=== PATIENT | male | born 1980 | race Caucasian/White ===

== ENCOUNTER → 2022-08-07 12:26 | Outpatient (BNVA) | payer MEDICAID, SELFPAY | PROVIDERS: PCP Nurse Practitioner Family; Visit Provider Nurse Practitioner Family | DX: N20.0 Calculus of kidney (principal); N43.3 Hydrocele, unspecified | CPT/HCPCS: 99202 ==

== ENCOUNTER 2022-08-25 15:28 | Outpatient (REF) | payer MEDICAID, SELFPAY ==
--- NOTE | ~2022-08-25 | US_ITS ---
EXAMINATION: US RETROPERITONEAL LIMITED (RENAL ONLY) CLINICAL INFORMATION: Calculus of kidney. COMPARISON: CT abdomen and pelvis 03/31/2018. TECHNIQUE: Real-time imaging of the kidneys. FINDINGS: RIGHT KIDNEY: 10.1 x 5.5 x 5.5 cm (SAG x AP x TRV). The kidney is normal in size, contour, and echogenicity. Renal cortical thickness is normal. A mid kidney 4 x 2 x 4 mm echogenic focus present consistent with a nonobstructing calculus. Similar finding was seen on the 2018 CT scan although a tiny bit smaller (3:308). No focal parenchymal lesions or hydronephrosis. LEFT KIDNEY: 11.0 x 6.0 x 5.6 cm (SAG x AP x TRV). The kidney is normal in size, contour, and echogenicity. Renal cortical thickness is normal. No calculi or focal parenchymal lesions. No hydronephrosis. Incidental note made of an echogenic liver compatible with hepatic steatosis. US/US renal BI IMPRESSION: 1. Nonobstructing right renal calculus. 2. Hepatic steatosis.
--- NOTE | ~2022-08-25 | US_ITS ---
EXAMINATION: US SCROTUM CLINICAL INFORMATION: Hydrocele, unspecified. COMPARISON: Scrotal ultrasound 03/31/2018. TECHNIQUE: A sonogram of the scrotum was performed assessing simpson-scale appearance and color Doppler flow. Spectral Doppler analysis of the arterial and venous flow were performed in the testes bilaterally. FINDINGS: RIGHT: Right testicle measures 4.5 x 2.5 x 2.6 cm, volume 15.0 mL. No focal testicular parenchymal lesions are visualized. Spectral Doppler analysis of the arterial and venous flow is normal in the right testis. Right epididymal head is normal in size. No right hydrocele or varicocele is seen. Right epididymal Doppler flow is normal. LEFT: Left testicle measures 4.5 x 2.3 x 2.5 cm, volume 13.2 mL. No focal testicular parenchymal lesions are visualized. Spectral Doppler analysis of the arterial and venous flow is normal in the left testis. Left epididymal head is normal in size. There is a small 2 x 1 x 2 mm cyst in the head of the left epididymis. No left hydrocele or varicocele is seen. Left epididymal Doppler flow is normal. US/US scrotum IMPRESSION: Essentially negative exam. A tiny cyst is present in the head of the left epididymis.
== END 2022-08-25 15:29 | disposition home or self-care (01) ==
LOC: HO.US 15:28
PROVIDERS: PCP Nurse Practitioner Family; Visit Provider Emergency Medicine
DX: N20.0 Calculus of kidney (principal); N50.89 Other specified disorders of the male genital organs; N43.3 Hydrocele, unspecified
CPT/HCPCS: 76775; 76870

== ENCOUNTER → 2022-10-08 15:50 | Outpatient (BNVA) | payer MEDICAID, SELFPAY | PROVIDERS: PCP Nurse Practitioner Family; Visit Provider Nurse Practitioner Family | DX: N20.0 Calculus of kidney (principal); N43.3 Hydrocele, unspecified | CPT/HCPCS: 99212 ==

== ENCOUNTER 2023-01-01 15:52 | Outpatient (REF) | payer MEDICAID, SELFPAY ==
[2023-01-01 17:59] LABS: MANUAL DIFF FLAG NO
[2023-01-01 18:23] LABS: Basophils Percent Auto 0.5 % (0-2); Eosinophils Percent Auto 0.2 % (0-4); Estimated Average Glucose 111 mg/dL; Hematocrit 45.8 % (42.0-52.0); Hemoglobin 15.1 g/dl (14.0-18.0); Hemoglobin A1c % 5.5 %; Imm Gran Abs Auto 0.01 X10*3/uL (0.00-0.03); Imm Gran Pct Auto 0.2 % (0.0-0.4); Lymphocytes Absolute Auto 2.5 X10*3/uL (1.2-4.9); Lymphocytes Percent Auto 41.6 % (20-40); Mean Corpuscular Hemoglobin 29.5 pg (27.0-33.0); Mean Corpuscular Volume 89.5 fL (80.0-98.0); Mean Platelet Volume 10.9 fL (9.4-12.4); Monocytes Absolute Auto 0.6 X10*3/uL (0.1-1.2); Monocytes Percent Auto 9.2 % (2-11); Neutrophils Percent Auto 48.3 % (45-73); Platelet Count 257 X10*3/uL (160-400); Red Blood Count 5.12 X10*6/uL (4.60-5.80); Red Cell Distribution Width 13.1 % (11.0-16.0); White Blood Count 6.1 X10*3/uL (4.8-10.8)
[2023-01-01 18:34] LABS: Alanine Aminotransferase 68 U/L (0-40); Albumin Level 4.5 g/dL (3.5-5.0); Alkaline Phosphatase 79 U/L (39-117); Anion Gap 13 (12-20); Aspartate Amino Transferase 35 U/L (5-37); Bilirubin Total 0.6 mg/dL (0.0-1.0); Blood Urea Nitrogen 12 mg/dL (9-16); Calcium 9.7 mg/dL (8.4-10.2); Carbon Dioxide 25 mmol/L (22-29); Chloride 105 mmol/L (96-108); Cholesterol 162 mg/dL; Estimated Glomerular Filt Rate > 60; Glucose Random 94 mg/dL (60-115); HDL Cholesterol 37 mg/dL; LDL Cholesterol Calculated 81 mg/dl; Potassium 3.7 mmol/L (3.3-5.1); Sodium 139 mmol/L (135-145); Total Protein 7.7 g/dL (6.5-8.0); Triglycerides 224 mg/dL
[2023-01-01 18:50] LABS: TSH reflex Free T4 2.32 uIU/mL (0.32-4.0)
[2023-01-02 03:31] LABS: CT PCR NOT DETECTED (Not Detect.); NG PCR NOT DETECTED (Not Detect.)
[2023-01-02 05:06] LABS: Syphilis Screen Nonreactive (Nonreactive)
[2023-01-02 05:46] LABS: ~Hepatitis C Antibody Nonreactive (Nonreactive)
[2023-01-06 20:13] LABS: HIV RNA PCR Qn Copies NOT DETECTED copies/mL (NOT DETECTED); HIV RNA PCR Qn Log Copies NOT DETECTED (NOT DETECTED)
== END 2023-01-01 15:53 | disposition home or self-care (01) ==
LOC: HO.HHCL 15:52
PROVIDERS: Visit Provider Registered Nurse
DX: Z00.00 Encounter for general adult medical examination without abnormal findings (principal); Z11.4 Encounter for screening for human immunodeficiency virus [HIV]; Z11.3 Encounter for screening for infections with a predominantly sexual mode of transmission
CPT/HCPCS: 0353U; 80053; 80061; 83036; 84443; 85025; 86780; 86803; 87536

== ENCOUNTER 2023-01-29 13:59 | Outpatient (REF) | payer MEDICAID, SELFPAY ==
[2023-01-29 17:21] LABS: Alanine Aminotransferase 45 U/L (0-40); Albumin Level 4.4 g/dL (3.5-5.0); Alkaline Phosphatase 72 U/L (39-117); Aspartate Amino Transferase 23 U/L (5-37); Bilirubin Direct 0.2 mg/dL (0.0-0.5); Bilirubin Total 0.6 mg/dL (0.0-1.0); Total Protein 7.3 g/dL (6.5-8.0)
[2023-01-30 08:23] LABS: HBsAGNum1 0.41 S/CO (0.00-0.99); Hepatitis A Antibody IgM 0.19 Index (0-0.79); Hepatitis B Core Antibody Nonreactive (Nonreactive); Hepatitis B Surface Antigen Negative (Negative); ~HepC Num1 0.09 S/CO (0.00-0.79); ~Hepatitis A Antibody IgM Nonreactive (Nonreactive); ~Hepatitis B Surface Antibody REACTIVE (Nonreactive); ~Hepatitis C Antibody Nonreactive (Nonreactive)
== END 2023-01-29 14:00 | disposition home or self-care (01) ==
LOC: HO.HHCL 13:59
PROVIDERS: Visit Provider Registered Nurse
DX: R74.8 Abnormal levels of other serum enzymes (principal)
CPT/HCPCS: 36415; 80076; 86704; 86706; 86709; 86803; 87340

== ENCOUNTER 2023-05-04 15:57 | Outpatient (REF) | payer MEDICAID, SELFPAY ==
[2023-05-06 12:04] LABS: HIV RNA PCR Qn Copies NOT DETECTED copies/mL (NOT DETECTED); HIV RNA PCR Qn Log Copies NOT DETECTED (NOT DETECTED)
== END 2023-05-04 15:58 | disposition home or self-care (01) ==
LOC: HO.HHCL 15:57
PROVIDERS: Visit Provider Registered Nurse
DX: Z79.899 Other long term (current) drug therapy (principal)
CPT/HCPCS: 36415; 87536

== ENCOUNTER 2023-05-11 14:23 | Outpatient (REF) | payer MEDICAID, SELFPAY ==
[2023-05-11 16:21] LABS: Alanine Aminotransferase 49 U/L (0-40); Aspartate Amino Transferase 24 U/L (5-37)
== END 2023-05-11 14:24 | disposition home or self-care (01) ==
LOC: HO.HHCL 14:23
PROVIDERS: Visit Provider Advanced Practice Midwife
DX: R74.8 Abnormal levels of other serum enzymes (principal)
CPT/HCPCS: 36415; 84450; 84460

== ENCOUNTER 2023-05-21 15:39 | Outpatient (REF) | payer MEDICAID, SELFPAY ==
[2023-05-23 16:33] LABS: HIV RNA PCR Qn Copies NOT DETECTED copies/mL (NOT DETECTED); HIV RNA PCR Qn Log Copies NOT DETECTED (NOT DETECTED)
== END 2023-05-21 15:40 | disposition home or self-care (01) ==
LOC: HO.HHCL 15:39
PROVIDERS: Visit Provider Registered Nurse
DX: Z79.899 Other long term (current) drug therapy (principal)
CPT/HCPCS: 36415; 87536

== ENCOUNTER 2023-06-18 15:22 | Outpatient (REF) | payer MEDICAID, SELFPAY ==
[2023-06-23 15:17] LABS: HIV RNA PCR Qn Copies NOT DETECTED copies/mL (NOT DETECTED); HIV RNA PCR Qn Log Copies NOT DETECTED (NOT DETECTED)
== END 2023-06-18 15:23 | disposition home or self-care (01) ==
LOC: HO.HHCL 15:22
PROVIDERS: Visit Provider Registered Nurse
DX: Z79.899 Other long term (current) drug therapy (principal)
CPT/HCPCS: 36415; 87536

== ENCOUNTER 2023-06-29 14:26 | Outpatient (REF) | payer MEDICAID, SELFPAY ==
[2023-07-04 15:24] LABS: Testosterone, Total 10 ng/dL (250-1100)
[2023-07-06 23:27] LABS: Estradiol Ultra Sensitive 125 pg/mL (< OR = 29)
== END 2023-06-29 14:27 | disposition home or self-care (01) ==
LOC: HO.HHCL 14:26
PROVIDERS: Visit Provider Advanced Practice Midwife
DX: F64.9 Gender identity disorder, unspecified (principal)
CPT/HCPCS: 36415; 82670; 84403

== ENCOUNTER 2023-07-09 16:37 | Outpatient (REF) | payer MEDICAID, SELFPAY ==
[2023-07-09 18:16] LABS: CT PCR NOT DETECTED (Not Detect.); NG PCR NOT DETECTED (Not Detect.)
== END 2023-07-09 16:38 | disposition home or self-care (01) ==
LOC: HO.HHCLNP 16:37
PROVIDERS: Visit Provider Advanced Practice Midwife
DX: R30.0 Dysuria (principal)
CPT/HCPCS: 0353U

== ENCOUNTER 2023-07-15 13:55 | Outpatient (REF) | payer MEDICAID, SELFPAY ==
--- NOTE | ~2023-07-15 | US_ITS ---
EXAMINATION: US COMPLETE ABDOMEN WITH LIVER ELASTOGRAPHY CLINICAL INFORMATION: Elevated liver function tests. COMPARISON: CT abdomen and pelvis dated 03/31/2018. TECHNIQUE: Real-time imaging of the abdominal viscera. Noninvasive ultrasound liver fibrosis assessment is performed using Rik ElastPQ point quantification shear wave elastography (2D-SWE) with a C5-2 MHz transducer. Multiple elastography samples are obtained. FINDINGS: PANCREAS: Limited. The visualized pancreatic head and proximal body are normal in appearance. The remainder of the pancreas is obscured from visualization by the overlying bowel gas. ABDOMINAL AORTA: The proximal, middle, and distal aortic segments are normal in caliber. INFERIOR VENA CAVA: Visualized portions are normal. LIVER: Normal. The liver demonstrates normal size, contour and echogenicity. No focal lesion or intrahepatic biliary duct dilatation. The right lobe measures 15.4 cm in length. The left lobe measures 9.7 cm in length. Portal flow is towards the liver (hepatopetal). Shear wave liver elastography median stiffness is 1.50 m/s (reference: normal median stiffness is 1.3 m/s or less). IQR/median stiffness to assess sampling precision is 0.08 (reference: good quality data set is IQR/median stiffness of 0.15 or less). GALLBLADDER: Normal. The gallbladder is physiologically distended without evidence of stones, sludge, polyps, wall thickening or pericholecystic fluid. COMMON BILE DUCT: Normal in caliber measuring 0.4 cm in diameter. RIGHT KIDNEY: At the interpolar aspect, an 8 mm cluster of calculi is seen.. No hydronephrosis. No renal calculi or focal parenchymal lesions. The kidney measures 11.2 cm in maximum dimension. LEFT KIDNEY: At the interpolar aspect, a 2.0 x 1.8 x 1.6 cm multiseptated cyst is newly seen, without mural nodularity or associated color Doppler flow demonstrated. In retrospect, this At the lower pole, a 9 mm cluster nonobstructing calculi is seen. No hydronephrosis. No renal calculi or focal parenchymal lesions. The kidney measures 10.2 cm in maximum dimension. SPLEEN: Normal. The spleen measures 9.1 cm in maximum dimension. FREE FLUID: None. US/US abdomen comp w elastography IMPRESSION: 1. There is generalized increase in hepatic echotexture, consistent with fatty infiltration or hepatocellular disease. Please correlate clinically. No focal hepatic mass or intrahepatic biliary dilatation is seen. 2. Liver elastography: In the absence of other known clinical signs, measurements rule out compensated advanced chronic liver disease. If there are known clinical signs, further testing may be needed for confirmation. 3. There are nonobstructing bilateral renal calculi. 4. A multiseptated complex left renal cyst is seen. If relevant to patient management, this can be further evaluated with CT or MRI (contrast-enhanced, renal mass protocol). REFERENCE: Society of Radiologists in Ultrasound Liver Stiffness Thresholds (2020): LIVER STIFFNESS THRESHOLDS: *Liver Stiffness equal or less than 1.3 m/s: High probability of being normal. *Liver Stiffness less than 1.7 m/s: In the absence of other known clinical signs, rules out compensated advanced chronic liver disease. *Liver Stiffness 1.7-2.1 m/s: Suggestive of compensated advanced chronic liver disease but need further test for confirmation. *Liver Stiffness over 2.1 m/s: Rules in compensated advanced chronic liver disease. *Liver Stiffness over 2.4 m/s: Suggestive of clinically significant portal hypertension. QUALITY OF DATA SET: *IQR/Median value equal or less than 0.15 implies a quality data set. *IQR/Median value over 0.15 implies a poor quality data set. SIGNIFICANT CHANGE FROM PRIOR EXAM: Significant change if liver stiffness measurement is 10% or greater from prior exam. OTHER CONSIDERATIONS: The stage of liver fibrosis may be overestimated in the setting of acute hepatitis, liver inflammation, elevated liver function tests, hepatic vascular congestion, obstructive cholestasis, non-fasting state, and infiltrative diseases such as amyloidosis and lymphoma. In some patients with NAFLD, the liver stiffness thresholds for compensated advanced chronic liver disease may be lower. In causes other than viral hepatitis and NAFLD, liver stiffness thresholds are not well established.
== END 2023-07-15 13:56 | disposition home or self-care (01) ==
LOC: HO.US 13:55
PROVIDERS: PCP Registered Nurse; Visit Provider Registered Nurse
DX: R74.8 Abnormal levels of other serum enzymes (principal)
CPT/HCPCS: 76700; 76981

== ENCOUNTER 2024-01-06 15:36 | Outpatient (REF) | payer OTHER, SELFPAY ==
[2024-01-06 18:19] LABS: Alanine Aminotransferase 22 U/L (0-40); Aspartate Amino Transferase 15 U/L (5-37); Blood Urea Nitrogen 14 mg/dL (9-16); Estimated Glomerular Filt Rate > 60; Potassium 3.8 mmol/L (3.3-5.1)
[2024-01-06 18:35] LABS: Vitamin D 25-OH Total 12.9 ng/mL (>30)
[2024-01-06 18:48] LABS: Folate 10.8 ng/mL (> or = 4.0); Vitamin B12 444 pg/mL (200-900)
[2024-01-07 07:51] LABS: Syphilis Screen Nonreactive (Nonreactive)
[2024-01-07 07:57] LABS: ~HepC Num1 0.13 S/CO (0.00-0.79); ~Hepatitis C Antibody Nonreactive (Nonreactive)
[2024-01-07 11:24] LABS: EBV-VCA IgG Ab >750.00 U/mL; EBV-VCA IgM Ab <36.00 U/mL
[2024-01-07 13:58] LABS: HIV RNA PCR Qn Copies NOT DETECTED copies/mL (NOT DETECTED); HIV RNA PCR Qn Log Copies NOT DETECTED (NOT DETECTED)
[2024-01-13 00:13] LABS: Estradiol Ultra Sensitive 217 pg/mL (< OR = 29)
== END 2024-01-06 15:37 | disposition home or self-care (01) ==
LOC: HO.HHCL 15:36
PROVIDERS: Referring Provider Registered Nurse; Visit Provider Advanced Practice Midwife
DX: R53.83 Other fatigue (principal); F64.9 Gender identity disorder, unspecified; Z79.899 Other long term (current) drug therapy
CPT/HCPCS: 36415; 82306; 82565; 82607; 82670; 82746; 84132; 84450; 84460; 84520; 86664; 86665; 86780; 86803; 87536

== ENCOUNTER 2024-02-04 15:00 | Outpatient (REF) | payer OTHER, SELFPAY ==
--- NOTE | ~2024-02-04 | XR_ITS ---
EXAMINATION: XR KNEE, RIGHT XR KNEE, LEFT CLINICAL INFORMATION: Chronic intermittent atraumatic knee pain. COMPARISON: None available. TECHNIQUE: Three views of each knee. FINDINGS: RIGHT KNEE: Bones and soft tissues are normal. No fracture or joint effusion. Alignment is anatomic. Joint spaces are well maintained. No abnormal soft tissue calcification. LEFT KNEE: Bones and soft tissues are normal. No fracture or joint effusion. Alignment is anatomic. Joint spaces are well maintained. No abnormal soft tissue calcification. XR/XR knee LT 3V IMPRESSION: Normal knee radiographs. Electronically signed by: Hola Granados MD 02/22/2024 11:10 PM EDT
--- NOTE | ~2024-02-04 | XR_ITS ---
EXAMINATION: XR KNEE, RIGHT XR KNEE, LEFT CLINICAL INFORMATION: Chronic intermittent atraumatic knee pain. COMPARISON: None available. TECHNIQUE: Three views of each knee. FINDINGS: RIGHT KNEE: Bones and soft tissues are normal. No fracture or joint effusion. Alignment is anatomic. Joint spaces are well maintained. No abnormal soft tissue calcification. LEFT KNEE: Bones and soft tissues are normal. No fracture or joint effusion. Alignment is anatomic. Joint spaces are well maintained. No abnormal soft tissue calcification. XR/XR knee RT 3V IMPRESSION: Normal knee radiographs. Electronically signed by: Hola Granados MD 02/22/2024 11:10 PM EDT
--- NOTE | ~2024-02-04 | CT_ITS ---
EXAMINATION: CT ABDOMEN AND PELVIS WITHOUT CONTRAST CLINICAL INFORMATION: History of urinary calculi. COMPARISON: Abdominal ultrasound dated 07/15/2023; CT abdomen and pelvis dated 03/31/2018. TECHNIQUE: Multidetector volumetric imaging was performed from the superior aspect of the liver through the pubic symphysis. Sagittal and coronal reformatted images were obtained on the technologist's workstation. This CT examination was performed using dose optimization techniques as appropriate, variously including the following: *Automated exposure control *Adjustment of mA and/or kV according to patient size (this includes techniques or standardized protocols for targeted exams where dose is matched to indication/reason for exam; i.e. extremities or head) *Use of iterative reconstruction technique DLP: 561 mGy-cm FINDINGS: LUNG BASES: The visualized lung bases are unremarkable. There is marked bilateral gynecomastia. LIVER, GALLBLADDER, AND BILIARY TREE: The liver is normal in size, shape, and attenuation. No focal hepatic lesion or biliary ductal dilatation is present. The gallbladder is unremarkable with no evidence of radiopaque gallstones, gallbladder wall thickening, or obvious pericholecystic inflammatory changes. PANCREAS: Unremarkable. SPLEEN: Unremarkable. ADRENAL GLANDS: Unremarkable. KIDNEYS AND URETERS: The kidneys are normal in size, shape, and attenuation. Within the mid right kidney (4:267), a 3 mm nonobstructing calculus is seen. Within the mid left kidney (4:296), a 1.5 cm cyst is again seen, with precontrast Hounsfield value of 1.1 units. No hydronephrosis, hydroureter, or calculi seen. No perinephric stranding. BLADDER: Unremarkable. GASTROINTESTINAL TRACT: There is minimal diverticulosis, without acute diverticulitis. No bowel obstruction, free intraperitoneal air or abscess is seen. There is no focal bowel wall thickening. The vermiform appendix appears normal. ABDOMINAL WALL: No significant hernia is appreciated. LYMPH NODES: There are shotty, nonpathologically enlarged para-aortic and bilateral iliac chain lymph nodes. No sizable abdominopelvic lymphadenopathy is seen. VASCULAR: Unremarkable. PELVIC VISCERA: The prostate and seminal vesicles are unremarkable. There are coarse central prostate calcifications. OSSEOUS STRUCTURES: At L5-S1, there is marked degenerative disc disease, with vacuum disc phenomenon. No acute or aggressive osseous finding is noted. CT/CT abdomen pelvis wo IV con IMPRESSION: 1. A 3 mm nonobstructing right renal calculus is seen. No further urinary calculus is seen, and there is no obstructive uropathy. 2. Within the mid left kidney, a 1.5 cm cyst is seen, incompletely evaluated without the benefit of intravenous contrast. This is unchanged in size from the abdominal ultrasound dated 07/15/2023. 3. There is minimal diverticulosis, without acute diverticulitis. 4. At L5-S1, there is marked degenerative disc disease. 5. There is marked bilateral gynecomastia. Fleischner guidelines were followed. Electronically signed by: Calderon Richey MD 03/07/2024 10:11 PM EDT
--- NOTE | ~2024-02-04 | XR_ITS ---
EXAMINATION: XR LUMBOSACRAL SPINE CLINICAL INFORMATION: Chronic intermittent low back pain. COMPARISON: CT abdomen and pelvis from the same day. TECHNIQUE: AP and lateral views of the lumbar spine and lateral view of the lumbosacral junction. FINDINGS: There is transitional anatomy in the thoracolumbar and lumbosacral spine with small riblets at L1. Reftllwt-hy-xmtrwh degenerative disc disease at L5-S1 with loss of intervertebral disc height and endplate osteophytes with endplate irregularity. Mild facet arthropathy at L4-L5 and L5-S1. Mild degenerative disc disease at L4-L5. Vertebral body heights are normal. No fractures. Mild degenerative disc disease at T11-T12. Subtle findings of sacroiliitis in the SI joints, better seen on the CT. XR/XR lumbar spine 2-3V IMPRESSION: 1. Bmmcqemy-rx-ohiohj degenerative disc disease at L5-S1. Mild degenerative disc disease at L4-L5 and T11-T12. 2. Mild facet arthropathy at L4-L5 and L5-S1. 3. Subtle findings of sacroiliitis in the SI joints. Electronically signed by: Hola Granados MD 02/22/2024 11:10 PM EDT
== END 2024-02-04 15:01 | disposition home or self-care (01) ==
LOC: HO.CT 15:00
PROVIDERS: PCP Registered Nurse; Visit Provider Registered Nurse
DX: M25.561 Pain in right knee (principal); M25.562 Pain in left knee; G89.29 Other chronic pain; M54.50 Low back pain, unspecified; Z87.442 Personal history of urinary calculi
CPT/HCPCS: 72100; 73562; 74176

== ENCOUNTER 2024-04-12 08:43 | Outpatient (REF) | payer OTHER, SELFPAY ==
[2024-04-12 12:02] LABS: Alanine Aminotransferase 40 U/L (0-40); Aspartate Amino Transferase 22 U/L (5-37)
[2024-04-12 12:18] LABS: Vitamin D 25-OH Total 22.6 ng/mL (>30)
[2024-04-17 14:24] LABS: Testosterone, Total 115 ng/dL (250-1100)
[2024-04-26 23:14] LABS: Estradiol Ultra Sensitive 50 pg/mL (< OR = 29)
== END 2024-04-12 08:44 | disposition home or self-care (01) ==
LOC: HO.HHCL 08:43
PROVIDERS: Registered Nurse; Visit Provider Advanced Practice Midwife
DX: F64.9 Gender identity disorder, unspecified (principal); E55.9 Vitamin D deficiency, unspecified
CPT/HCPCS: 36415; 82306; 82670; 84403; 84450; 84460

== ENCOUNTER 2024-07-29 13:18 | Outpatient (AMB) | payer MEDICAID, SELFPAY ==
--- NOTE | 2024-07-29 13:24 | HO.NEPHOV ---
Vital Signs 07/29/24 13:29 Height 5 ft 7.5 in Weight 206 lb BMI 31.8 BP 120/82 Blood Pressure Location Lt brachial Position Sitting Pulse 88 Pulse Source Pulse Oximeter Pulse Oximetry (%) 96 Oxygen Delivery Method Room Air Intake Visit Reasons: ENP: Cyst of LT Kidney/ Conf Accompanied by: Self / Same As Patient Allergies No Known Allergies Allergy (Verified 07/29/24 13:29) HPI Comments Details: I had the privilege of seeing Amarjit in consultation for renal calculi as well as left renal cyst. He has a very strong family H/O of renal calculi ( brother and mom). He denies flank pain, hematuria, passing of grit or gravel, fever, nausea, vomiting. He has no family H/O renal cancers. He does not have any night sweats or weight loss. His blood pressure has been at goal and he has normal renal function. He tries to maintain good hydration and minimize the use of NSAID's. He denies family H/O medullary sponge kidney, ESRD or renal transplantation. He did not have any specific systemic complaints at the time of this office visit. [facility] Medical History (Updated 07/29/24 @ 13:42 by Berlin Tse MD) History of nephrolithiasis NAFL (nonalcoholic fatty liver) Major depression in remission Kidney stone Overweight Allergic rhinitis Surgical History History of nasal surgery Hx of tonsillectomy Family History Mother Diabetes Father Diabetes Prostate cancer Paternal Uncle Cancer Maternal Aunt Cancer Social History (Updated 07/29/24 @ 13:27 by Tea Syed MA) Alcohol intake: never Patient Tobacco Use Status: Never used Tobacco Review of Systems Const All systems reviewed & are unremarkable except as noted in HPI and below Physical Exam Vital Signs: Last Vital Signs Pulse 88 07/29/24 13:29 BP 120/82 07/29/24 13:29 Pulse Ox 96 07/29/24 13:29 Oxygen Delivery Method Room Air 07/29/24 13:29 BMI result Body Mass Index 31.8 Const General: comfortable and no acute distress Orientation/consciousness: patient oriented x3 HEENT Head: Yes normocephalic Mouth: Normal oral and palatal mucosa present Eyes EOM: EOMs intact bilaterally Neck Neck: Yes supple Resp Auscultation: clear to auscultation bilaterally Cardio Jugular venous distension: no JVD Rate: regular rate GI Palpation (GI): Soft to palpation Auscultation: normal bowel sounds General: Yes no CVA tenderness Back/Spine/Pelvis Back: no CVA tenderness Skin General skin exam: no rashes or lesions noted Neuro General: patient oriented x3 and moves all extremities Extrem General: Yes no pedal edema Results Reviewed Nephrology Results: Potassium 3.8 mmol/L (3.3-5.1) 01/06/24 BUN 14 mg/dL (9-16) 01/06/24 Creatinine 0.80 mg/dL (0.5-1.4) 01/06/24 Assessment & Plan Assessment & Plan (1) Nephrolithiasis: Code(s): N20.0 - Calculus of kidney Category: Medical (2) Renal cyst: Code(s): N28.1 - Cyst of kidney, acquired Category: Medical Plan Amarjit has H/O renal calculi and has seen Urology in the past. His last renal imaging showed calculi and renal cyst. He has very strong family H/O renal calculi ( mom and brother). He was asked to maintain good hydration and minimize Na in diet . He can cut back animal protein and increase fruits and vegetables in the diet. He can add lemon in the water to increase citrate in the urine. He is not aware of the kind of renal stones he has. He does not have gout. His serum calcium has been normal. His renal function and BP has been normal. I asked him to do a a 24 hour urine for stone screen. He may need HCTZ and or K citrate. I shall arrange follow up imaging for the renal cyst in year time. Answered all questions and F/U was given Orders: Orders Calcium, 24 Hr Ur 07/29/24 N20.0 - Calculus of kidney Citric Acid 24hr Urine 07/29/24 N20.0 - Calculus of kidney Sodium, 24Hr Urine Group 07/29/24 N20.0 - Calculus of kidney Oxalate, 24 Hr 07/29/24 N20.0 - Calculus of kidney Uric Acid, 24Hr Urine Group 07/29/24 N20.0 - Calculus of kidney Coding Level of Care Code New Pt Level 4 (87592) Diagnoses Nephrolithiasis N20.0 Renal cyst N28.1
[2024-07-29 13:29] VITALS: BP 120/82; PULSE 88; O2SAT 96; BMI 31.8
--- OUTSIDE RECORDS SUMMARY | 2024-07-29 15:23 | XMS_ITS | Encounter Summary ---
Author Organization [employer] [facility] Address [address] [place] [address] Care Team Providers Care Health Worker Name Role Phone Akiko Camacho Primary Care Provider [phone] Aminah Ribeiro PhD Unavailable [phone] Encounter Details Date Type Department Care Team (Late Contact Info) Description 02/27/2023 Orders Only [facility] MED & PEDS [address] [place], [place] [phone] Ritika Giron, SRINIVAS [address] [place] [address] Social History Tobacco Use Types Packs/Day Years Used Date Smoking Tobacco: Never Passive Smoke Exposure: Never Smokeless Tobacco: Never Alcohol Use Standard Drinks/Week Comments Never 0 (1 standard drink = 0.6 oz pur e alcohol) Depression Answer Date Recorded Patient Health Questionnaire-9 Score 22 11/21/2022 Depression Answer Date Recorded Patient Health Questionnaire-2 Score 4 11/21/2022 Sex and Gender Information Value Date Recorded Sex Assigned at Male 03/31/2022 10:15 AM EDT Legal Sex Male 10:15 AM EDT Gender Identity Female 01/01/2023 3:32 PM EDT Sexual Orientation Straight 03/31/2022 10 :15 AM EDT documented as of this encounter Plan of Treatment Upcoming Encounters Date Type Department Care Team (Late Contact Info) Description 08/12/2024 3:30 PM EDT Office Visit [facility]S [address], [place] [phone] Akiko Camacho FNP [address] [place] [address] documented as of this encounter Visit Diagnoses Not on filedocumented in this encounter Additional Health Concerns Assessment Noted Time PHQ-9 Depression Total Score: 22 11/21/ 023 2:13 PM EDT documented as of this encounter Care Teams Health Worker Relationship Specialty Start Date End Date Akiko Camacho FNP [address] [place] [id number] PCP - General Family Medicine 11/24/22 Aminah Ribeiro, PhD [address] [place] [address] Psychology 12/30/22 documented as of this encounter
--- OUTSIDE RECORDS SUMMARY | 2024-07-29 15:23 | XMS_ITS | Encounter Summary ---
Author Organization [facility] [facility] Address [address] [place] [address] Care Team Providers Care Material Control Clerk Name Role Phone Akiko CamachoP Primary Care Provider [phone] Aminah Ribeiro PhD Unavailable [phone] Reason for Referral * Consultation (Routine) - Closed Specialty Diagnoses / Procedures Referred By Tamiko vora Referred To Contact Plastic Surgery Diagnoses Gender dysphoria Ritika Giron CNM [address] [place] [address] Phone: tel: fax: Dyllan Leach MD [address] [facility] [address] [place] [address] Phone: tel: fax: Referral ID Status Reason Start Date Expiration Date V isits Requested Visits Authorized [id number] Closed Specialty Services Required 07/20/2024 07/20/2025 1 1 Encounter Details Date Type Department Care Team (Late st Contact Info) Description 07/20/2024 Orders Only [facility] MED[facility] [address] [place], [place] [phone] Ritika Giron CNM [address] [place], [place] [phone] Gender dysphoria (Primary Dx) Social History Tobacco Use Types Packs/Day Years Used Date Smoking Tobacco: Never Passive Smoke Exposure: Never Smokeless Tobacco: Never Alcohol Use Standard Drinks/Week Comments Never 0 (1 standard drink = 0.6 oz pur e alcohol) Depression Answer Date Recorded Patient Health Questionnaire-9 Score 7 07/03/2023 Patient Health Questionnaire-9 Score 7 07/03/2023 Last PHQ-9: Questionnaire Data Not on file 0 07/03/2023 Housing Stability Answer Date Recorded What is your housing situation today? I have shirlene mckeon 03/19/[address] you li ve. Do you have problems with any of the following? None of the above 03/19/2023 Food Insecurity Answer Date Recorded Within the past 12 months, y ou worried that your food would run out before you got money to buy more: Sometimes True 2022 Within the past 12 months,th e food you bought just didn't last and you didn't have enough money to get more: Sometimes True 03/19/2023 Transportation Answer Date Recorded In the past 12 months, has l ack of transportation kept you from medical appts, meetings, work or from getting things needed for daily living? No 03/19/2023 Utilities Answer Date Recorded In the past 12 months, has t he electric, gas, oil or water company threatened to shut off services in your home? No 03/19/2023 Depression Answer Date Recorded Patient Health Questionnaire-2 Score 1 07/03/2023 Sex and Gender Information Value Date Recorded Sex Assigned at Male 03/31/2022 10:15 AM EDT Legal Sex Male 10:15 AM EDT Gender Identity Female 01/01/2023 3:32 PM EDT Sexual Orientation Straight 03/31/2022 10 :15 AM EDT documented as of this encounter Plan of Treatment Upcoming Encounters Date Type Department Care Team (Late st Contact Info) Description 08/12/2024 3:30 PM EDT Office Visit [facility] MED & PEDS [address] [place] [address] Akiko Camacho FNP [address] [place] [address] Scheduled Referrals Name Type Priority Associated Diagnoses Orde r Schedule Referral to Plastic Surgery Outpatient Referral Routine Gender dysphoria Expected: 07/20/2024 (Approximate), Expires: 07/20/2025 documented as of this encounter Visit Diagnoses Diagnosis Gender dysphoria- Primary documented in this encounter Additional Health Concerns Assessment Noted Time PHQ-9 Depression Total Score: 7 07/03/19 24 3:39 PM EST documented as of this encounter Care Teams Material Control Clerk Relationship Specialty Start Date End Date Akiko Camacho FNP [address] [place] [address] PCP - General Family Medicine 11/24/22 Aminah Ribeiro, PhD [address] [place] [address] Psychology 12/30/22 documented as of this encounter
--- OUTSIDE RECORDS SUMMARY | 2024-07-29 15:23 | XMS_ITS | Encounter Summary ---
Author Organization [employer] [facility] Address [address] [place] [address] Care Team Providers Care Chef Broiler Or Fry Name Role Phone NarenJesus elyle ABRASIVE GRADER Primary Care Provider Aminah Ribeiro PhD Unavailable Reason for Visit * Reason Onset Date Comments Med Refill 12/28/2023 Encounter Details Date Type Department Care Team (Late st Contact Info) Description 12/28/2023 Refill [facility] [address] [place], [place] [phone] Ritika Giron, [facility] [address] [place], [place] [phone] Social History Tobacco Use Types Packs/Day Years [...] AM EDT documented as of this encounter Miscellaneous Notes * Telephone Encounter - Ritika Giron CNM - 12/30/2023 8:00 AM EDT Duplicate request for medications already sent in. * Telephone Encounter - Ritika Giron CNM - 12/29/2023 1:04 PM EDT I just sent these in - please confirm with pharmacy. Thanks! documented in this encounter Plan of Treatment Upcoming Encounters Date Type Department Care Team ([facility] st Contact Info) Description 08/12/2024 3:30 PM EDT Office Visit [facility] MED & PEDS [address] [place] [address] Akiko Camacho FNP [address] [place] [address] documented as of this encounter Visit Diagnoses Not on filedocumented in this encounter Additional Health Concerns Assessment Noted Time PHQ-9 Depression Total Score: 7 07/03/19 24 3:39 PM EST documented as of this encounter Care Teams Chef Broiler Or Fry Relationship Specialty Start Date End Date Akiko Camacho FNP [address] [place] [address] PCP - General Family Medicine 11/24/22 Aminah Ribeiro, PhD [address] [place] [address] Psychology 12/30/22 documented as of this encounter
--- OUTSIDE RECORDS SUMMARY | 2024-07-29 15:23 | XMS_ITS | Encounter Summary ---
Author Organization [employer] Address [address] [place] [address] Care Team Providers Care Stunner Name Role Phone Akiko Camacho Primary Care Provider [phone] Aminah Ribeiro PhD Unavailable [phone] Reason for Visit * Reason Onset Date Comments Call Back Request 07/19/2024 Referral 07/19/2024 Encounter Details Date Type Department Care Team ([facility] st Contact Info) Description 07/19/2024 Telephone [facility] MEDICINE [address] [place] [address] Akiko Camacho FNP [address] [place], [place] [phone] Call Back Request (/); Referral Social History Tobacco Use Types Packs/Day Years [...] Telephone Encounter - Ritika Giron CNM - 07/20/2024 4:01 PM EST Orion Ocasio met with you in 03/2024 and would like to have breast surgery for gender affirmation. Are you comfortable writing letter? If so, please route to referrals. Thanks! * Telephone Encounter - Ritika Giron CNM - 07/20/2024 4:00 PM EST Referral placed. Will need letter of support from behavioral health provider. I will send a messageto as Amarjit was seen by them 03/2024. * Telephone Encounter - Awilda Gonzalez RN - 07/20/2024 2:30 PM EST TC to patient. He stated he had already spoken with Ritika Giron regarding breast augmentation, and was told to get a referral for appointments with Ritika Giron. Routing to provider for review. * Telephone Encounter - Heidi Lopezgo - 07/19/2024 1:37 PM EST Tc from pt requesting a call back to discuss breast augmentation. [phone] documented in this encounter Plan of Treatment Upcoming Encounters Date Type Department Care Team ([facility] st Contact Info) Description 08/12/2024 3:30 PM EDT Office Visit [facility] MED & PEDS [address] [place], [place] [phone] Akiko Camacho FNP [address] [place], [place] [phone] documented as of this encounter Visit Diagnoses Not on filedocumented in this encounter Additional Health Concerns Assessment Noted Time PHQ-9 Depression Total Score: 7 07/03/19 24 3:39 PM EST documented as of this encounter Care Teams Stunner Relationship Specialty Start Date End Date Akiko Camacho FNP [address] [place] [address] PCP - General Family Medicine 11/24/22 Aminah Ribeiro, PhD [address] [place], [place] [phone] Psychology 12/30/22 documented as of this encounter
--- OUTSIDE RECORDS SUMMARY | 2024-07-29 15:23 | XMS_ITS | Encounter Summary ---
Author Organization [employer] Address [address] [place] [address] Care Team Providers Care Manufacturing Tech Name Role Phone Akiko Camacho Primary Care Provider [phone] Aminah Ribeiro PhD Unavailable [phone] Reason for Visit * Reason Comments Med Refill Encounter Details Date Type Department Care Team ([facility] Contact Info) Description 07/24/2024 Refill [facility] MED & PEDS [address] [place], [place] [phone] Akiko Camacho FNP [address] [place] [address] Sleep disturbance Social History Tobacco Use Types Packs/Day Years [...] Description 08/12/2024 3:30 PM EDT Office Visit [facility] [address] [place] [address] Akiko Camacho FNP [address] [place] [address] documented as of this encounter Visit Diagnoses Diagnosis Sleep disturbance Unspecified sleep disturbance documented in this encounter Additional Health Concerns Assessment Noted Time PHQ-9 Depression Total Score: 7 07/03/19 24 3:39 PM EST documented as of this encounter Care Teams Manufacturing Tech Relationship Specialty Start Date End Date Akiko Camacho FNP [address] [place] [address] PCP - General Family Medicine 11/24/22 Aminah Ribeiro, PhD [address] [place] [address] Psychology 12/30/22 documented as of this encounter
--- OUTSIDE RECORDS SUMMARY | 2024-07-29 15:23 | XMS_ITS | Encounter Summary ---
Author Organization [employer] [facility] Address [address] [place] [address] Care Team Providers Care Waiter/Waitress Second Class Name Role Phone NarenJesus elyle CUSTOMER MARKETING MANAGER Primary Care Provider [phone] Aminah Ribeiro PhD Unavailable [phone] Reason for Visit * Reason Onset Date Comments Med Refill 04/25/2024 Encounter Details Date Type Department Care Team (Late st Contact Info) Description 04/25/2024 Refill [facility] MEDICINE [address] [place], [place] [phone] Ritika Giron, [facility] [address] [place], [place] [phone] Social History Tobacco Use Types Packs/Day Years [...] Description 08/12/2024 3:30 PM EDT Office Visit [facility] MED & PEDS [address] [place], [place] [phone] Akiko Camacho FNP [address] [place] [address] documented as of this encounter Visit Diagnoses Not on filedocumented in this encounter Additional Health Concerns Assessment Noted Time PHQ-9 Depression Total Score: 7 07/03/19 24 3:39 PM EST documented as of this encounter Care Teams Waiter/Waitress Second Class Relationship Specialty Start Date End Date Akiko Camacho FNP [address] [place] [address] PCP - General Family Medicine 11/24/22 Aminah Ribeiro, PhD [address] [place] [address] Psychology 12/30/22 documented as of this encounter
--- OUTSIDE RECORDS SUMMARY | 2024-07-29 15:23 | XMS_ITS | Encounter Summary ---
Author Organization [employer] [facility] Address [address] [place] [address] Care Team Providers Care Reliner Name Role Phone NarenJesus elyle KNOCKOUT MACHINE OPERATOR Primary Care Provider [phone] Aminah Ribeiro PhD Unavailable [phone] Reason for Visit * Reason Comments Med Refill Encounter Details Date Type Department Care Team ([facility] st Contact Info) Description 01/22/2024 Refill [facility] MEDICINE [address] [place], [place] [phone] Ritika Giron CNM [address] [place] [address] Social History Tobacco Use Types Packs/Day Years [...] Telephone Encounter - Ritika Giron CNM - 01/26/2024 8:31 AM EDT No, it's a chronic medication. But it's a 5ml vial which should last for several months. * Telephone Encounter - Ritika Giron CNM - 01/25/2024 12:53 PM EDT I sent this in last month. Please confirm with pharmacy. documented in this encounter Plan of Treatment Upcoming Encounters Date Type Department Care Team (Late st Contact Info) Description 08/12/2024 3:30 PM EDT Office Visit [facility] MED & PEDS [address] [place] [address] Akiko Camacho FNP [address] [place] [address] documented as of this encounter Visit Diagnoses Not on filedocumented in this encounter Additional Health Concerns Assessment Noted Time PHQ-9 Depression Total Score: 7 07/03/19 24 3:39 PM EST documented as of this encounter Care Teams Reliner Relationship Specialty Start Date End Date Akiko Camacho FNP [address] [place], [place] [phone] PCP - General Family Medicine 11/24/22 Aminah Ribeiro, PhD [address] [place], [place] [phone] Psychology 12/30/22 documented as of this encounter
--- OUTSIDE RECORDS SUMMARY | 2024-07-29 15:23 | XMS_ITS | Encounter Summary ---
Author Organization [employer] Address [address] 7[address] [place] [address] Care Team Providers Care Museum Host/Hostess Name Role Phone NarenAkiko ely OIL BURNER JOURNEYMAN Primary Care Provider [phone] Aminah Ribeiro PhD Unavailable [phone] Reason for Visit * Reason Comments Med Refill Encounter Details Date Type Department Care Team ([facility] st Contact Info) Description 07/09/2023 Refill [facility]EDS [address] [place], [place] [phone] Ritika Giron, COLLEEN [address] [place] [address] Social History Tobacco Use Types Packs/Day Years [...] [facility] MED & PEDS [address] [place] [address] Akiko Cmaacho FNP [address] [place] [address] documented as of this encounter Visit Diagnoses Not on filedocumented in this encounter Additional Health Concerns Assessment Noted Time PHQ-9 Depression Total Score: 7 07/03/19 24 3:39 PM EST documented as of this encounter Care Teams Museum Host/Hostess Relationship Specialty Start Date End Date Akiko Camacho FNP [address] [place] [address] PCP - General Family Medicine 11/24/22 Aminah Ribeiro, PhD [address] [place] [address] Psychology 12/30/22 documented as of this encounter
--- OUTSIDE RECORDS SUMMARY | 2024-07-29 15:23 | XMS_ITS | Encounter Summary ---
Author Organization [employer] [facility] Address [address] [place] [address] Care Team Providers Care Helper Maintenance Cleaning Name Role Phone Akiko Camacho Primary Care Provider [phone] Akiko Camacho Primary Care Provider [phone] Aminah Ribeiro PhD Unavailable [phone] Reason for Visit * Reason Onset Date Comments New Patient Appt 10/17/2022 Encounter Details Date Type Department Care Team (Late st Contact Info) Description 10/17/2022 Telephone [facility] MEDICINE [address] [place] [address] Akiko Camacho FNP [address] [place], [place] [phone] New Patient Appt Social History Tobacco Use Types Packs/Day Years Used Date Smoking Tobacco: Never Assessed Sex and Gender Information Value Date Recorded Sex Assigned at Male 03/31/2022 10:15 AM EDT Legal Sex Male 10:15 AM EDT Gender Identity Female 01/01/2023 3:32 PM EDT Sexual Orientation Straight 03/31/2022 10 :15 AM EDT documented as of this encounter Miscellaneous Notes * Telephone Encounter - Victoriano Joseph - 10/17/2022 11:03 AM EDT PAR Victoriano Jasso called pt to r/s [facility] appt. Pt demographics and insurance information were verified. Pt reports previous care at [facility] with PCP Dr. Brandyn Toure. Pt reports no medicalconditions. Pt is not taking any medication at this time. Pt given [facility]OO[facility] appt with on 11/21/[address] Akiko Camacho. Pt will be sent appt reminder card and medical release form and agrees to completeand to return to medical records prior to [facility] appt. documented in this encounter Plan of Treatment Upcoming Encounters Date Type Department Care Team (Late st Contact Info) Description 08/12/2024 3:30 PM EDT Office Visit [facility] MED & PEDS [address] [place], [place] [phone] Akiko Camacho FNP [address] [place] [address] documented as of this encounter Visit Diagnoses Not on filedocumented in this encounter Care Teams Helper Maintenance Cleaning Relationship Specialty Start Date End Date Akiko Camacho FNP [address] [place] [address] PCP - General Family Medicine 10/17/22 10/29/22 Akiko Camacho FNP [address] [place] [address] PCP - General Family Medicine 11/24/22 Aminah Ribeiro, PhD [address] [place] [address] Psychology 12/30/22 documented as of this encounter
--- OUTSIDE RECORDS SUMMARY | 2024-07-29 15:23 | XMS_ITS | Encounter Summary ---
Author Organization [employer] [facility] Address [address] [place] [address] Care Team Providers Care Global Climate Change Analyst Name Role Phone Akiko Camacho Primary Care Provider [phone] Aminah Ribeiro PhD Unavailable [phone] Encounter Details Date Type Department Care Team (Late Contact Info) Description 11/24/2022 Abstract [facility] MEDICINE [address] [place] [address] Akiko Camacho FNP [address] [place] [address] Social History Tobacco Use Types Packs/Day Years [...] Orientation Straight 03/31/2022 10 :15 AM EDT COVID-19 Exposure Response Date Recorded In the last 10 days, have yo u been in contact with someone who was confirmed or suspected to have Coronavirus/COVID-19? No / Unsure 11/21/2022 1:08 PM EDT documented as of this encounter Plan of Treatment Upcoming Encounters Date Type Department Care Team (Late Contact Info) Description 08/12/2024 3:30 PM EDT Office Visit [facility] MED & PEDS [address] [place], [place] [phone] Akiko Camacho FNP [address] [place] [address] documented as of this encounter Visit Diagnoses Not on filedocumented in this encounter Additional Health Concerns Assessment Noted Time PHQ-9 Depression Total Score: 22 023 2:13 PM EDT documented as of this encounter Care Teams Global Climate Change Analyst Relationship Specialty Start Date End Date Akiko Camacho FNP [address] [place] [address] PCP - General Family Medicine 11/24/22 Aminah Ribeiro, PhD [address] [place], [place] [phone] Psychology 12/30/22 documented as of this encounter
--- OUTSIDE RECORDS SUMMARY | 2024-07-29 15:23 | XMS_ITS | Encounter Summary ---
Author Organization [employer] Address [address] [place] [address] Care Team Providers Care Director Compensation Name Role Phone NarenJesus elyle [employer]JOR LEAG[employer] B[employer]BALL UMPIRE Primary Care Provider [phone] Aminah Ribeiro PhD Unavailable [phone] Reason for Visit * Reason Comments Med Change Request Encounter Details Date Type Department Care Team ([facility] st Contact Info) Description 11/04/2023 Refill [facility] MEDICINE [address] [place], [place] [phone] Ritika Giron CNM [address] [place] [address] Social History Tobacco Use Types Packs/Day Years [...] Description 08/12/2024 3:30 PM EDT Office Visit [facility] MED & PEDS [address] [place], [place] [phone] Akiko Camacho FNP [address] [place] [address] documented as of this encounter Visit Diagnoses Not on filedocumented in this encounter Additional Health Concerns Assessment Noted Time PHQ-9 Depression Total Score: 7 07/03/19 24 3:39 PM EST documented as of this encounter Care Teams Director Compensation Relationship Specialty Start Date End Date Akiko Camacho FNP [address] [place] [address] PCP - General Family Medicine 11/24/22 Aminah Ribeiro, PhD [address] [place] [address] Psychology 12/30/22 documented as of this encounter
--- OUTSIDE RECORDS SUMMARY | 2024-07-29 15:23 | XMS_ITS | Encounter Summary ---
Author Organization [employer] [facility] Address [address] [place] [address] Care Team Providers Care Interior Design Coordinator Name Role Phone Akiko Camacho Primary Care Provider [phone] Aminah Ribeiro PhD Unavailable [phone] Reason for Visit * Reason Onset Date Comments Med Refill 05/26/2023 Encounter Details Date Type Department Care Team (Late st Contact Info) Description 05/26/2023 Refill [facility] MEDICINE [address] [place] [address] Akiko Camacho FNP [address] [place], [place] [phone] Social History Tobacco Use Types Packs/Day Years Used Date Smoking Tobacco: Never Passive Smoke Exposure: Never Smokeless Tobacco: Never Alcohol Use Standard Drinks/Week Comments Never 0 (1 standard drink = 0.6 oz pur e alcohol) Depression Answer Date Recorded Patient Health Questionnaire-9 Score 4 05/08/2023 Patient Health Questionnaire-9 Score 4 05/08/2023 Last PHQ-9: Questionnaire Data Not on file 1 07/09/2022 Housing Stability Answer Date Recorded What is [...] Answer Date Recorded Patient Health Questionnaire-2 Score 0 05/08/2023 Sex and Gender Information Value Date Recorded Sex Assigned at Male 03/31/2022 10:15 AM EDT Legal Sex Male 10:15 AM EDT Gender Identity Female 01/01/2023 3:32 PM EDT Sexual Orientation Straight 03/31/2022 10 :15 AM EDT documented as of this encounter Miscellaneous Notes * Telephone Encounter - Ritika Giron CNM - 05/27/2023 10:47 AM EST Great - thanks! I am going to refuse these rxs since there is an estradiol rx on file and I sent inneedles/syringes already. * Telephone Encounter - Kike Huertas RN - 05/27/2023 10:42 AM EST TC placed to pharmacy, spoke with Mehreen who state they do have a rx for estradiol from 05/21/23, sheput it through to see what happens. Mehreen state rx will be filled and pt will be notified by text once ready for pickup. RN will BHAVIK Yost. * Telephone Encounter - Ritika Giron CNM - 05/27/2023 10:03 AM EST I sent in estradiol earlier this month. Can you please confirm with pharmacy? I will send in needlerxs now. Thanks! * Telephone Encounter - Irene Hernández - 05/26/2023 2:45 PM EST TC from pt requesting medication refill. Medications needing refill : estradiol valerate (Delestrogen) 20 MG/ML injection Syringe/Needle, Disp, (B-D 3CC LUER-SUDEEP SYR 22GX1 ) 22G X 1 3 ML misc To be sent to: [facility] #[id number] - [place], [place] - [address] [place] [address] AT [facility] documented in this encounter Plan of Treatment Upcoming Encounters Date Type Department Care Team (Late st Contact Info) Description 08/12/2024 3:30 PM EDT Office Visit [facility] MED & PEDS [address] [place], [place] [phone] Akiko Camacho FNP [address] [place] [address] documented as of this encounter Visit Diagnoses Not on filedocumented in this encounter Additional Health Concerns Assessment Noted Time PHQ-9 Depression Total Score: 4 05/08/20 23 1:13 PM EST documented as of this encounter Care Teams Interior Design Coordinator Relationship Specialty Start Date End Date Akiko Camacho FNP [address] [place] [address] PCP - General Family Medicine 11/24/22 Aminah Ribeiro, PhD [address] [place] [address] Psychology 12/30/22 documented as of this encounter
--- OUTSIDE RECORDS SUMMARY | 2024-07-29 15:23 | XMS_ITS | Clinical Summary ---
Author Organization [employer] Address [address] [facility] [address] [place] [address] Care Team Providers Care Spindle Carver Name Role Phone Akiko CamachoP Primary Care Provider [phone] Aminah Ribeiro PhD Unavailable [phone] Allergies No known active allergies Medications * This document contains information received from the source organization and may not represent a complete record from that organization. pyridoxine (Vitamin B-6) 100 MG tablet Take 100 mg by mouth in the morning. 10/09/19 23 Active loratadine (Claritin) 10 MG tabletIndicatio ns:Seasonal allergic rhinitis, unspecified trigger Take 1 tablet by mouth once a day as needed for allergies 90 tablet 3 11/22/19 23 Active albuterol 108 (90 Base) MCG/ACT inhalerIndicati ons:Viral upper respiratory tract infection,Chron ic cough Inhale 2 puffs every 6 (six) hours if needed for wheezing. 18 g 05/04/20 23 Active Multiple Vitamin (multivitamin) tablet Take 1 tablet by mouth Once daily. 90 tablet 3 08/03/19 24 Active Alcohol Swabs (Alcohol Prep) 70 % pads 1 Pad 1 (one) time per week. 1 each 3 12/28/19 24 Active fluticasone (Flonase) 50 MCG/ACT nasal sprayIndication s:Seasonal allergic rhinitis, unspecified trigger Administer 1 spray into each nostril 2 times daily. Shake gently. Before first use, prime pump. After use, clean tip and replace cap. 48 mL 3 01/04/20 24 Active acetaminophen (Acetaminophen 8 Hour) 650 MG ER tabletIndicatio ns:Low back pain at multiple sites,Sacroilii tis (CMS/HCC) Take 1 tablet (650 mg) by mouth every 8 (eight) hours if needed (pain or fever). Do not crush, chew, or split. 100 tablet 3 03/01/20 24 025 Active ibuprofen 200 MG tabletIndicatio ns:Low back pain at multiple sites,Sacroilii tis (CMS/HCC) Take 2-3 tablets (400-600 mg) by mouth every 8 (eight) hours if needed (pain or fever). 100 tablet 3 03/01/20 24 025 Active cholecalciferol (Vitamin D-3) 25 MCG (1000 UT) tablet Take 1 tablet (25 mcg) by mouth Once per day. 90 tablet 1 04/20/20 24 Active Syringe/Needle, Disp, (B-D 3CC LUER-SUDEEP SYR 22GX1 ) 22G X 1 3 ML misc 1 each 1 (one) time per week. Use to draw up medication 12 each 1 05/03/20 24 025 Active estradiol valerate (Delestrogen) 20 MG/ML injection INJECT 0.5ML INTO THE MUSCLE WEEKLY DIRECTED 15 mL 1 05/16/20 24 Active Syringe/Needle, Disp, (B-D INTEGRA SYRINGE) 25G X 5/8 3 ML misc INJECT 1 EACH UNDER THE SKIN ONCE A WEEK 12 each 06/23/19 25 Active doxepin (SINEquan) 10 MG capsuleIndicati ons:Sleep disturbance TAKE 1 CAPSULE BY MOUTH EVERYDAY AT BEDTIME 90 capsule 1 07/26/19 25 Active doxepin (SINEquan) 10 MG capsuleIndicati ons:Sleep disturbance TAKE 1 CAPSULE BY MOUTH AT BEDTIME 90 capsule 1 01/11/20 24 025 Discontinued Active Problems Problem Noted Date Diagnosed Date DDD (degenerative disc disease), lumbar 03/01/20 Overview (03/01/2024): XR lumbar Jan 2024 demonstrated DDD L5-S1 and other arthritic changes Referrals: PS&S & physical therapy referrals sent 03/01/24 Sacroiliitis 03/01/2024 Overview (03/01/2024): Demonstrated bilateral sacroiliitis on XR lumbar Jan 2024 Referred to physical therapy and PS&S for further eval 03/01/24 On pre-exposure prophylaxis for HIV 08/03/2023 Assessment & Plan (08/03/2023 7:30 PM EST): Injectable cabotegravir initiated 05/21/23 NAFL (nonalcoholic fatty liver) 08/03/2023 Overview (01/09/2024): - Abd US with electrography completed Jul 2023: Shear wave liver elastography median stiffness is 1.50 m/s (reference: normal median stiffness is 1.3 m/s or less). US and lab work c/w fatty liver Lab Results Component Value Date AST 15 01/06/2024 AST 24 05/11/2023 AST 23 01/29/2023 ALT 22 01/06/2024 ALT 49 (H) 05/11/2023 ALT 45 (H) 01/29/2023 Lab Results Component Value Date AST 15 01/06/2024 ALT 22 01/06/2024 TOTPROTEIN 7.3 01/29/2023 ALB 4.4 01/29/2023 ALP 72 01/29/2023 TOTALBILIRUB 0.6 01/29/2023 Assessment & Plan (01/09/2024 7:17 PM EDT): -Congratulated on improvement of nutrition over the past year, likely leading to improved LFTs. Cont lifestyle interventions. Assessment & Plan (08/03/2023 7:41 PM EST): -Denies history of excess alcohol consumption -Reviewed lifestyle interventions including routine physical activity, diet rich in fruits, vegetables, and healthy fats. Limited/no alcohol use. -Plan to repeat labs in 3-6 months History of nephrolithiasis 08/03/2023 Assessment & Plan (08/03/2023 7:51 PM EST): - Incidental finding on abdominal US of bilateral non-obstructing calculi - CT w/o contrast ordered for further eval - Currently asymptomatic, reviewed red flag symptoms - Also with incidental finding of multiseptated complex left renal cyst - may follow up with Urology as needed Recurrent major depressive disorder, in partial remission 03/02/2023 Assessment & Plan (08/03/2023 4:05 PM EST): Amarjit has been attending follow up session to manage documented hx of depression and gender dysphoria. Has expressed increased in euthymic mood PHQ9 had been on 22 in 11/21/22 and 4 today during session, documenting a significant reduction in depressive sxs. At this time Amarjit indicates feeling supported by family and once disclosing gender identity. We will be doing follow up Brief Encounters on a monthly basis to support in gender affirming process Assessment & Plan (05/08/2023 1:36 PM EST): Amarjit has been attending follow up session to manage documented hx of depression and gender dysphoria. Has expressed increased in euthymic mood PHQ9 had been on 22 in 11/21/22 and 4 today during session, documenting a significant reduction in depressive sxs. At this time Amarjit indicates feeling supported by family and once disclosing gender identity. We will be doing follow up Brief Encounters on a monthly basis to support in gender affirming process Sleep disturbance 01/29/2023 Assessment & Plan (01/09/2024 7:23 PM EDT): Cont doxepin 10mg nightly PRN. Reviewed med safety and SE Previous med trials: melatonin, ramelteon Primary difficulty with sleep initiation/onset Continue with sleep hygiene interventions such as: Encouraged pt to use bed exclusively for sleep and sex. Set bed time and try to stay consistent each night with hour going to sleep and waking in morning. Avoid screens or electronics ideally for 2 hours before bed. If having trouble falling asleep, get up and journal or read before trying to re-initiate sleep. Assessment & Plan (08/03/2023 7:38 PM EST): Cont doxepin 10mg nightly PRN. Reviewed med safety and SE Previous med trials: melatonin, ramelteon Primary difficulty with sleep initiation/onset Continue with sleep hygiene interventions such as: Encouraged pt to use bed exclusively for sleep and sex. Set bed time and try to stay consistent each night with hour going to sleep and waking in morning. Avoid screens or electronics ideally for 2 hours before bed. If having trouble falling asleep, get up and journal or read before trying to re-initiate sleep. Assessment & Plan (07/03/2023 8:52 PM EST): ?? Primary difficulty with sleep initiation/onset ?? Continue with sleep hygiene interventions such as: Encouraged pt to use bed exclusively for sleep and sex. Set bed time and try to stay consistent each night with hour going to sleep and waking in morning. Avoid screens or electronics ideally for 2 hours before bed. If having trouble falling asleep, get up and journal or read before trying to re-initiate sleep. ?? Start doxepin 10mg nightly. Reviewed med safety and SE ?? Previous med trials: melatonin, ramelteon Assessment & Plan (01/29/2023 1:50 PM EDT): ?? Primary difficulty with sleep initiation/onset ?? Continue with sleep hygiene interventions such as: Encouraged pt to use bed exclusively for sleep and sex. Set bed time and try to stay consistent each night with hour going to sleep and waking in morning. Avoid screens or electronics ideally for 2 hours before bed. If having trouble falling asleep, get up and journal or read before trying to re-initiate sleep. ?? Start ramelteon 8mg nightly PRN. Reviewed med safety and SE Gender dysphoria 11/24/2022 Assessment & Plan (05/08/2023 1:36 PM EST): Amarjit has been attending follow up session to manage documented hx of depression and gender dysphoria. Has expressed increased in euthymic mood PHQ9 had been on 22 in 11/21/22 and 4 today during session, documenting a significant reduction in depressive sxs. At this time Amarjit indicates feeling supported by family and once disclosing gender identity. We will be doing follow up Brief Encounters on a monthly basis to support in gender affirming process Assessment & Plan (11/25/2022 10:44 AM EDT): Assessment: Patient indicates that for the past 21yrs (since coming out as homosexual) he has experienced anhedonia, feeling depressed, crying spells, hopeless and helpless nearly every day. Additionally, experiencing difficulty falling and staying asleep, fatigued, lack of energy, poor appetite, excessive, disproportionate feelings of guilt, difficulty concentrating and indecisiveness nearly every day. Wilma identifies that main stressor is related to gender identity, reporting that since a young age he has felt as a female. Patient reports that since childhood he has experienced marked incongruence between experinced/expressed gender and gender assigned at ; strong desire to be of female gender; strong preference to cross-dress I feel myself and happiest when I'm in drag and dressed as a woman ; strong preference in activities deemed as female; strong dislike of sexual anatomy and strong desire to have primary and secondary sex characteristics that match female gender. As an adult patient reports strong desire to rid of his primary and secondary sex characteristics to better align with his gender identity and to be treated and seen as a female. Patient experiences significant distress that has impacted his social, occupational and other interactions and quality of life. Patient has undergone multiple facial cosmetic procedures to obtain a more feminine aesthetic that aligns with gender identity. Patient would benefit from individual therapy to process current stressors and gender identity disclosure. Additionally, referral to gender affirming treatment (per patient's request). At this time Agata Narvaez meets criteria for Visit Diagnoses: Problem List Items Addressed This Visit Other Gender dysphoria Patient ready to address current needs Yes Strengths include Desire to engage in treatment. Supportive family. PLAN: 1. Follow up with [facility]: Recommended for follow-up: Intake scheduled for 12/09 with Provider Aminah Ribeiro 2. Patient goal is Engage in Gender Affirming therapy and treatment 3. Behavioral Recommendations a. Engage in individual therapy weekly/biweekly b. Engage with medical providers to discuss and assess Gender Affirming treatments Allergic rhinitis 06/25/2015 Assessment & Plan (11/21/2022 6:27 PM EDT): ?? Continues with Loratadine and flonase PRN Resolved Problems Problem Noted Date Diagnosed Date Resolved Date Kidney stone 11/21/2022 11/21/2022 Encounters Date Type Department Care Team Description 07/24/[address] [facility] [address] [place] [address] Akiko Camacho FNP Sleep disturbance 07/20/2024 Orders Only [facility] [address] [place] [address] Ritika Giron CNM Gender dysphoria (Primary Dx) 07/19/2024 Telephone [facility] [address] [place] [address] Akiko Camacho FNP Call Back Request (/); Referral 06/27/2024 Orders Only [facility] [address] [place] [address] Pao Loving RN 06/23/2024 Telephone [facility] [address] [place] [address] Mando Miles MA Chart Prep 06/21/2024 Refill [facility] [address] [place] [address] Ritika Giron CNM 05/15/2024 Refill [facility] [address] [place] [address] Ritika Giron CNM 05/03/2024 3:15 PM EST Office Visit [address] [address] Ritika Giron CNM Gender dysphoria (Primary Dx) 05/03/2024 Travel from Last 3 Months Immunizations Name Administration Dates Next Due Hep B, adult 03/15/2018 Influenza injectable quadriv alent IIV4 with preservative 06/25/2015 Influenza, IIV3, injectable 03/23/2014 Influenza, Split (incl. purified surface antigen ) 04/09/2012 Pfizer Covid-19 Vaccine 12+ 10/30/2021 Pfizer Covid-19 Vaccine 12+ Bivalent 11/21/2022 Tdap 03/23/2014 Social History Tobacco Use Types Packs/Day Years Used Date Smoking Tobacco: Never Passive Smoke Exposure: Never Smokeless Tobacco: Never Tobacco Cessation:Counseling Given: Not Answered Alcohol Use Standard Drinks/Week Comments Never 0 [...] Orientation Straight 03/31/2022 10 :15 AM EDT Last Filed Vital Signs Vital Sign Reading Time Taken Comments Blood Pressure 144/92 05/03/2024 3:17 PM EST Pulse 98 05/03/2024 3:17 PM EST Temperature 36.6 ??C (97.9 ??F) 05/03/2024 3:17 PM ES T Respiratory Rate 16 05/03/2024 3:17 PM EST Oxygen Saturation 98% 05/03/2024 3:17 PM EST Inhaled Oxygen Concentration - - Weight 92.8 kg (204 lb 9.6 oz) 05/03/2024 3:17 P M EST Height 170.2 cm (5' 7 ) 05/03/2024 3:17 PM EST Body Mass Index 32.04 05/03/2024 3:17 PM EST Plan of Treatment Upcoming Encounters Date Type Department Care Team (Late st Contact Info) Description 08/12/2024 3:30 PM EDT Office Visit [facility] [address] [place] [address] Akiko Camacho, MELTING SUPERVISOR [address] [place] [address] Health Maintenance Due Date Last Done Comments Alcohol/Substance Use Screening 1993 Family Planning (PISQ) 1996 Hepatitis A Vaccines (1 of 2 - Risk 2-dose series) 2000 SDOH Screening 11/15/2023 11/14/2022 COVID-19 Vaccine ( season) 2024 11/21/2022, 10/30/2021 Influenza Vaccine (#1) 2024 6, 03/23/2014, 04/09/2012 DTaP/Tdap/Td Vaccines (2 - Td or Tdap) 03/23/2024 03/23/2014 Depression Screening 07/03/2024 07/03/2023, 07/03/19 24 Tobacco Screening 05/03/2025 05/03/2024 Lipid Panel 01/02/2028 01/01/2023 Zoster Vaccines (1 of 2) 08/22/2031 RSV Patients and Patients Aged 60 years or older (1 - 1-dose 75+ series) 2056 Hepatitis B Vaccines Discontinued 03/15/2018 HIV Screening Completed 06/21/2024, 08/0 11/2023, 06/18/2023, Additional history exists Hepatitis C Screening Completed 06/21/2024 , 01/06/2024, 01/29/2023, Additional history exists HIB Vaccines Aged Out No longer eligi ble based on patient's age to complete this topic HPV Vaccines Aged Out No longer eligi ble based on patient's age to complete this topic IPV Vaccines Aged Out No longer eligi ble based on patient's age to complete this topic Meningococcal Vaccine Aged Out No heidi new eligible based on patient's age to complete this topic Pneumococcal Vaccine: Pediatrics (0 to 5 Years) and At-Risk Patients (6 to 49) Years) Aged Out No longer eligible based on patient's age to complete this topic RSV under 20 months Aged Out No longe r eligible based on patient's age to complete this topic Rotavirus Vaccines Aged Out No longer eligible based on patient's age to complete this topic Procedures Procedure Name Priority Date/Time Associated Diagnosis Comments HIV ANTIBODY/ANTIGEN ([place] [facility]) Routine 06/21/2024 HEPATITIS C ANTIBODY ([place] [facility]) Routine 06/21/2024 SYPHILIS ABS ([place] [facility]) Routine 06/21/2024 CHLAMYDIA/GONORRHEA - URINE ([place] [facility]) Routine 06/21/2024 CHLAMYDIA/GONORRHEA RECTAL SWAB ([place] [facility]) Routine 06/21/2024 CHLAMYDIA/GONORRHEA THROAT SWAB ([place] [facility]) Routine 06/21/2024 LIPID PANEL, STANDARD Routine 01/01/2023 3:57 PM EDT Healthcare maintenance from Last 3 Months or Most Recently Relevant to Health Maintenance Results * Chlamydia/Gonorrhea, Rectal Swab ([place] [facility]) (06/21/2024) Chlamydia Rectal Swab Negative Negative, Indeterminate, None Detected, Invalid, Specimen unsatisfactory for evaluation Gonorrhea Rectal Swab Negative Negative, Indeterminate, None Detected, Invalid, Specimen unsatisfactory for evaluation Swab 06/21/2024 Historical Provider MD LAB MICROBIOLOGY - GENERA L ORDERABLES Final Result * Chlamydia/Gonorrhea Throat Swab ([place] [facility]) (06/21/2024) Chlamydia Throat Swab Negative Gonorrhea Throat Swab Negative Swab 06/21/2024 Historical Provider MD LAB MICROBIOLOGY - GENERA L ORDERABLES Final Result * Chlamydia/Gonorrhea, Urine ([place] [facility]) (06/21/2024) Chlamydia, Urine Negative Negative, Indeterminate, None Detected, Invalid, Specimen unsatisfactory for evaluation, Weakly Positive Gonorrhea, Urine Negative Negative, Indeterminate, None Detected, Invalid, Specimen unsatisfactory for evaluation, Weakly Positive Urine 06/21/2024 [facility] Provider MD LAB URINE ORDERABLES Shara l Result * Syphilis Antibodies (DPH) (06/21/2024) Syphilis Abs Nonreactive Borderline, Nonreactive, Weakly Reactive, Inconclusive, Specimen unsatisfactory for evaluation Blood Venous blood specimen / Unknown 06/21/2024 [facility] Provider MD LAB BLOOD ORDERABLES Shara l Result * Hepatitis C Antibody ([facility]) (06/21/2024) Pathologist [facility] Hepatitis C Ab Nonreactive Blood 06/21/2024 [facility] MD LAB BLOOD ORDERABLES Shara l Result * HIV Ab/Ag ([facility]) (06/21/2024) Pathologist [facility] HIV Ag/Ab Nonreactive Blood 06/21/2024 [facility] MD LAB BLOOD ORDERABLES Shara l Result * Lipid Panel, Standard (01/01/2023 3:57 PM EDT) Pathologist [facility] Triglycerides 224 mg/dL [facility] Comment:Desirable Triglyceri de: less than 150 mg/dLBorderline High Triglyceride 150-199 mg/dLHigh Triglyceride: 200-499 mg/dLVery High Triglyceride: greater than or equal to 5OO mg/dL Cholesterol 162 mg/dL [facility] Comment:Desirable Cholestero l: less than 200 mg/dLBorderline High Cholesterol: 200-239 mg/dLHigh Cholesterol: greater than 239 mg/dL LDL Cholesterol Calculated 81 mg/dl [facility] Comment:Desirable LDL: less than 100 mg/dLNear Optimal/Above Optimal LDL: 110- 129 mg/dLBorderline High LDL: 130-159 mg/dLHigh LDL: 160-189 mg/dLVery High LDL: greater than or equal to 190 mg/dL HDL Cholesterol 37 mg/dL [facility] Comment:Desirable HDL: great er than 40 mg/dL Note: This HDL assay may give artificially low results in patients with liver disease. Blood Venous blood specimen / Unknown 01/01/2023 3:57 PM EDT 01/01/2023 5:57 PM EDT us Akiko Camacho MELTING SUPERVISOR LAB BLOOD ORDERABLES Final Res ult [facility] [address] [place] [address] [phone] from Last 3 Months or Most Recently Relevant to Health Maintenance Insurance [facility] Care Teams Spindle Carver Relationship Specialty Start Date End Date Akiko Camacho FNP [address] [place], [place] [phone] PCP - General Family Medicine 11/24/22 Aminah Ribeiro, PhD [address] [place], [place] [phone] Psychology 12/30/22
--- OUTSIDE RECORDS SUMMARY | 2024-07-29 15:23 | XMS_ITS | Encounter Summary ---
Author Organization [employer] [facility] Address [address] [place] [address] Care Team Providers Care Senior Consumer Insights Consultant Name Role Phone Akiko Camacho Primary Care Provider [phone] Aminah Ribeiro PhD Unavailable [phone] Reason for Visit * Reason Onset Date Comments Results 01/30/2023 Encounter Details Date Type Department Care Team ([facility] Contact Info) Description 01/30/2023 Telephone [facility] [address] [place] [address] Akiko Camacho FNP [address] [place], [place] [phone] Results Social History Tobacco Use Types Packs/Day Years [...] encounter Miscellaneous Notes * Telephone Encounter - Teresa Babak - 01/30/2023 2:00 PM EDT Tc from pt requesting a call in regards to lab results. Please contact pt at [phone] documented in this encounter Plan of Treatment Upcoming Encounters Date Type Department Care Team (Late st Contact Info) Description 08/12/2024 3:30 PM EDT Office Visit [facility] [address] [place], [place] [phone] Akiko Camacho FNP [address] [place], [place] [phone] documented as of this encounter Visit Diagnoses Not on filedocumented in this encounter Additional Health Concerns Assessment Noted Time PHQ-9 Depression Total Score: 22 023 2:13 PM EDT documented as of this encounter Care Teams Senior Consumer Insights Consultant Relationship Specialty Start Date End Date Akiko Camacho FNP [address] [place] [phone] PCP - General Family Medicine 11/24/22 Aminah Ribeiro, PhD [address] [place] [address] Psychology 12/30/22 documented as of this encounter
== END 2024-07-29 13:46 | disposition home or self-care (01) ==
PROVIDERS: PCP Registered Nurse; Visit Provider Internal Medicine Nephrology
DX: N20.0 Calculus of kidney (principal); N28.1 Cyst of kidney, acquired
CPT/HCPCS: 99204

== ENCOUNTER → 2024-07-29 13:18 | Outpatient (BNVA) | payer MEDICAID, SELFPAY | PROVIDERS: PCP Registered Nurse; Visit Provider Internal Medicine Nephrology | DX: N20.0 Calculus of kidney (principal); N28.1 Cyst of kidney, acquired | CPT/HCPCS: 99202 ==

== ENCOUNTER 2025-04-03 15:57 | Outpatient (REF) | payer SELFPAY ==
--- OUTSIDE RECORDS SUMMARY | 2025-04-03 17:03 | XMS_ITS | Encounter Summary ---
Author Organization [employer] Address [address] [place] [address] Care Team Providers Care Wastewater Operator Name Role Phone Akiko Camacho Primary Care Provider [phone] Akiko Camacho Primary Care Provider [phone] Aminah Ribeiro PhD Unavailable [phone] Reason for Visit * Reason Onset Date Comments New Patient Appt 10/17/2022 Encounter Details Date Type Department Care Team (Late st Contact Info) Description 10/17/2022 Telephone [facility] [address] [place] [address] Akiko Camacho FNP [address] [place], [place] [phone] New Patient Appt Social History Tobacco Use [...] PAR Victoriano Jasso called pt to r/s INSTRUMENTATION TECHNOLOGIST appt. Pt demographics and insurance information were verified. Pt reports previous care at [facility] with PCP Dr. Brandyn Toure. Pt reports no medicalconditions. Pt is not taking any medication at this time. Pt given INSTRUMENTATION TECHNOLOGIST appt with on 11/21/[address] Akiko Camacho. Pt will be sent appt reminder card and medical release form and agrees to completeand to return to medical records prior to INSTRUMENTATION TECHNOLOGIST appt. documented in this encounter Plan of Treatment Upcoming Encounters Date Type Department Care Team (Late st Contact Info) Description 04/12/2025 3:30 PM EST Office Visit [facility] [address] [place] [address] Ritika Giron CNM [address] [place] [address] 05/16/2025 10:45 AM EST Office Visit [facility] [address] [place], [place] [phone] Mira Ahumada MD [address] [place], [place] [phone] documented as of this encounter Visit Diagnoses Not on filedocumented in this encounter Care Teams Wastewater Operator Relationship Specialty Start Date End Date Akiko Camacho FNP [address] [place] [phone] PCP - General Family Medicine 10/17/22 10/29/22 Akiko Camacho FNP [address] [place] [address] PCP - General Family Medicine 11/24/22 Aminah Ribeiro, PhD [address] [place] [id number] Psychology 12/30/22 documented as of this encounter
--- OUTSIDE RECORDS SUMMARY | 2025-04-03 17:03 | XMS_ITS | Encounter Summary ---
Author Organization [employer] Address 75 [facility] [address]t [place] [address] Care Team Providers Care Jewel Cupping Machine Operator Name Role Phone Akiko Camacho FISH NET MAKER Primary Care Provider [phone] Aminah Ribeiro PhD Unavailable [phone] Reason for Visit * Reason Onset Date Comments Med Refill 04/25/2024 Encounter Details Date Type Department Care Team (Late st Contact Info) Description 04/25/2024 Refill [facility] [address] [place], [place] [phone] Ritika Giron, SRINIVAS [address] [place], [place] [phone] Social History Tobacco Use Types Packs/Day Years [...] Description 04/12/2025 3:30 PM EST Office Visit [facility] [address] [place] [address] Ritika Giron CNM [address] [place] [address] 05/16/2025 10:45 AM EST Office Visit [facility] [address] [place], [place] [phone] Mira Ahumada MD 505 [place], [place] [phone] documented as of this encounter Visit Diagnoses Not on filedocumented in this encounter Additional Health Concerns Assessment Noted Time PHQ-9 Depression Total Score: 7 07/03/19 24 3:39 PM EST documented as of this encounter Care Teams Jewel Cupping Machine Operator Relationship Specialty Start Date End Date Akiko Camacho FNP [address] [place] [address] PCP - General Family Medicine 11/24/22 Aminah Ribeiro, PhD [address] [place] [address] Psychology 12/30/22 documented as of this encounter
--- OUTSIDE RECORDS SUMMARY | 2025-04-03 17:03 | XMS_ITS | Clinical Summary ---
Author Organization [email or web address] Address 75 [facility] 7t [place] [address] Care Team Providers Care Hydro Operator Name Role Phone Akiko Camacho Primary Care Provider [phone] Aminah Ribeiro PhD Unavailable [phone] Allergies No known active allergies Medications * This document contains information received from the source organization and may not represent a complete record from that organization. pyridoxine (Vitamin B-6) 100 MG tablet Take 100 mg by mouth in the morning. 3 Active loratadine (Claritin) 10 MG tabletIndication s:Seasonal allergic rhinitis, unspecified trigger Take 1 tablet by mouth once a day as needed for allergies 90 tablet 3 3 Active albuterol 108 (90 Base) MCG/ACT inhalerIndicatio ns:Viral upper respiratory tract infection,Chroni c cough Inhale 2 puffs every 6 (six) hours if needed for wheezing. 18 g 3 Active Multiple Vitamin (multivitamin) tablet Take 1 tablet by mouth Once daily. 90 tablet 3 4 Active Alcohol Swabs (Alcohol Prep) 70 % pads 1 Pad 1 (one) time per week. 1 each 3 4 Active fluticasone (Flonase) 50 MCG/ACT nasal sprayIndications :Seasonal allergic rhinitis, unspecified trigger Administer 1 spray into each nostril 2 times daily. Shake gently. Before first use, prime pump. After use, clean tip and replace cap. 48 mL 3 4 Active cholecalciferol (Vitamin D-3) 25 MCG (1000 UT) tablet Take 1 tablet (25 mcg) by mouth Once per day. 90 tablet 1 4 Active estradiol valerate (Delestrogen) 20 MG/ML injection INJECT 0.5ML INTO THE MUSCLE WEEKLY DIRECTED 15 mL 1 5 Active Syringe/Needle, Disp, (B-D INTEGRA SYRINGE) 25G X 5/8 3 ML misc INJECT 1 EACH UNDER THE SKIN ONCE A WEEK 12 each 3 5 Active spironolactone (Aldactone) 50 MG tablet One tablet by mouth daily x 7 days, then increase to one tablet twice a day. 60 tablet 2 5 Active Syringe/Needle, Disp, (BD Plastipak Syringe) 21G X 1 3 ML misc USE ONCE A WEEK TO DRAW UP MEDICATION 12 each 3 5 Active Active Problems Problem Noted Date Diagnosed Date Urinary frequency 02/28/2025 Assessment & Plan (02/28/2025 7:54 AM EDT): - Urinary frequency noted, possibly related to spironolactone use, but longstanding symptoms since adolescence. - Ordered blood work to assess kidney function and urinalysis to rule out infection. Encouraged to follow up with Urology regarding kidney stones and bladder function. Contact PCP office with any difficulties scheduling appointment. Renal cyst, left 02/28/2025 Assessment & Plan (02/28/2025 7:58 AM EDT): CT abdominal/pelvis 02/04/24 additionally demonstrated a 1.5cm cyst in the mid left kidney Following with [facility] - Dr. Tse. Consult in Jul 2024 w/ plan for repeat imaging in 1 yr DDD (degenerative disc disease), lumbar 03/01/20 Overview (03/01/2024): XR lumbar Jan 2024 demonstrated DDD L5-S1 and other arthritic changes Referrals: PS&S & physical therapy referrals sent 03/01/24 Assessment & Plan (02/28/2025 7:55 AM EDT): - Lumbar degenerative disc disease and sacroiliitis confirmed by imaging. Symptoms include persistent back pain with functional impairment. - Provided handouts for [employer] home physical therapy exercises. Referral to [facility] for specialist evaluation. Sacroiliitis 03/01/2024 Overview (03/01/2024): Demonstrated bilateral sacroiliitis on XR lumbar Sept 2023 Referred to physical therapy and PS&S for [...] History of nephrolithiasis 08/03/2023 Assessment & Plan (02/28/2025 7:57 AM EDT): CT abdominal/pelvis 02/04/24 demonstrated a 3 mm nonobstructing right renal calculus Currently asymptomatic, suspect may have passed the stone Follow up precautions reviewed Assessment & Plan (08/03/2023 7:51 PM EST): [...] Assessment & Plan (05/08/2023 1:36 PM EST): Amarjti has been attending follow up session to [...] process Sleep disturbance 01/29/2023 Assessment & Plan (02/28/2025 7:59 AM EDT): Improved, no longer requiring use of meds for sleep Previous med trials: melatonin, ramelteon, doxepin Assessment & Plan (01/09/2024 7:23 PM EDT): [...] Assessment & Plan (07/03/2023 8:52 PM EST): Primary difficulty with sleep initiation/onset Continue with [...] or read before trying to re-initiate sleep. Start doxepin 10mg nightly. Reviewed med safety and SE Previous med trials: melatonin, ramelteon Assessment & Plan (01/29/2023 1:50 PM EDT): Primary difficulty with sleep initiation/onset Continue with [...] or read before trying to re-initiate sleep. Start ramelteon 8mg nightly PRN. Reviewed med [...] Supportive family. PLAN: 1. Follow up with [facility]: Recommended for follow-up: Intake scheduled for 12/09 with Provider Aminah Ribeiro 2. Patient goal is Engage in Gender Affirming therapy and treatment 3. Behavioral Recommendations a. Engage in individual therapy weekly/biweekly b. Engage with medical providers to discuss and assess Gender Affirming treatments Allergic rhinitis 06/25/2015 Assessment & Plan (11/21/2022 6:27 PM EDT): Continues with Loratadine and flonase PRN Resolved Problems Problem Noted Date Diagnosed Date Resolved Date Kidney stone 11/21/2022 11/21/2022 Encounters * This document contains information received from the source organization and may not represent a complete record from that organization. Date Type Department Care Team Description 02/27/2025 3:15 PM EDT Office Visit [facility] [address] [place] [address] Akiko Camacho FNP Degeneration of intervertebral disc of lumbar region with discogenic back pain and lower extremity pain (Primary Dx); Skin tag; Urinary frequency; Sacroiliitis (CMS/HCC); History of nephrolithiasis; Renal cyst, left; Sleep disturbance 02/27/2025 Travel 02/24/2025 Telephone [facility] [address] [place] [address] Akiko Camacho FNP Chart Prep 02/09/2025 Refill [facility] [address] [place] [address] Ritika Giron CNM 02/01/2025 Telephone [facility] [address] [place] [address] [place] 01/26/2025 Telephone [facility] [address] [place] [address] Akiko Camacho FNP Medication Question 01/23/2025 Refill [facility] [address] [place] [address] Ritika Giron CNM 01/18/2025 Refill [facility] [address] [place] [address] Ritika Giron CNM 01/09/2025 2:00 PM EDT Office Visit [facility] [address] [place] [address] Ritika Giron CNM Gender dysphoria (Primary Dx) 01/09/2025 Travel 01/06/2025 Telephone [facility] [address] [place] [address] Akiko Camacho FNP chartprep from Last 3 Months Immunizations Immunization Administration Dates Next Due Hep B, adult [...] Answer Date Recorded Patient Health Questionnaire-9 Score 9 01/09/2025 Patient Health Questionnaire-9 Score 9 01/09/2025 Last PHQ-9: Questionnaire Data Not on file 0 01/09/2025 Housing Stability Answer Date Recorded What is your housing situation today? I have shirlenemarleni mckeon 01/09/[address] you li ve. Do you have problems with any of the following? Water leaks 01/09/2025 Food Insecurity Answer Date Recorded Within the past 12 months, y ou worried that your food would run out before you got money to buy more: Never True 01/09/2025 Within the past 12 months,th e food you bought just didn't last and you didn't have enough money to get more: Never True 04/2025 Transportation Answer Date Recorded In the past 12 months, has l ack of transportation kept you from medical appts, meetings, work or from getting things needed for daily living? Yes, it has kept me from non-medical meetings, work, or getting things that I need 01/09/2025 Utilities Answer Date Recorded In the past 12 months, has t he electric, gas, oil or water company threatened to shut off services in your home? No 01/09/2025 Depression Answer Date Recorded Patient Health Questionnaire-2 Score 2 01/09/2025 Internet Access Answer Date Recorded Internet Access Q1 Yes 01/09/2025 Internet Access Q2 Not on file 01/09/2025 Sex and Gender Information Value Date Recorded Sex Assigned at Male 03/31/2022 10:15 AM EDT Legal Sex Male 10:15 AM EDT Gender Identity Female 01/01/2023 3:32 PM EDT Sexual Orientation Straight 03/31/2022 10 :15 AM EDT Last Filed Vital Signs Vital Sign Reading Time Taken Comments Blood Pressure 122/82 02/27/2025 3:28 PM EDT Pulse 80 02/27/2025 3:28 PM EDT Temperature 36.7 C (98 F) 02/27/2025 3:28 PM EDT Respiratory Rate 12 02/27/2025 3:28 PM EDT Oxygen Saturation 98% 02/27/2025 3:28 PM EDT Inhaled Oxygen Concentration - - Weight 88.9 kg (196 lb) 02/27/2025 3:28 PM EDT Height 170.2 cm (5' 7 ) 02/27/2025 3:28 PM EDT Body Mass Index 30.7 02/27/2025 3:28 PM EDT Plan of Treatment Upcoming Encounters Date Type Department Care Team (Late st Contact Info) Description 04/12/2025 3:30 PM EST Office Visit [facility] [address] [place] [address] Ritika Giron CN [address] [place] [address] 05/16/2025 10:45 AM EST Office Visit [facility] [address] [place] [address] Mira Ahumada MD [address] [place] [address] Health Maintenance Due Date Last Done Comments Disability Screening 1981 Family Planning (PISQ) 1996 HPV Vaccines (1 - 3-dose series) 1996 Hepatitis A Vaccines (1 of 2 - Risk 2-dose series) 2000 DTaP/Tdap/Td Vaccines (2 - Td or Tdap) 03/23/2024 03/23/2014 COVID-19 Vaccine (3 - season) 2025 11/21/2022, 10/30/2021 Influenza Vaccine (#1) 2025 6, 03/23/2014, 04/09/2012 Depression Monitoring 07/12/2025 01/09/2025, 025 Alcohol/Substance Use Screening 01/09/2026 01/09/2025 SDOH Screening 01/09/2026 01/09/2025 Tobacco Screening 01/09/2026 01/09/2025 Lipid Panel 01/02/2028 01/01/2023 Zoster Vaccines (1 [...] patient's age to complete this topic Meningococcal B Vaccine Aged Out No l onger eligible based on patient's age to complete this topic Meningococcal Vaccine Aged Out No heidi new eligible based on patient's age to complete this topic Pneumococcal Vaccine: Pediatrics (0 to 5 Years) and At-Risk Patients (6 to 49) Years Aged Out No longer eligible based on patient's age to complete this topic RSV under 20 months Aged Out No longe r eligible based on patient's age to complete this topic Rotavirus Vaccines Aged Out No longer eligible based on patient's age to complete this topic Procedures Procedure Name Priority Date/Time Associated Diagnosis Comments HEPATITIS C ANTIBODY ([place] [facility]) Routine 06/21/2024 HIV ANTIBODY/ANTIGEN ([facility]) Routine 06/21/2024 LIPID PANEL, STANDARD Routine 01/01/2023 3:57 PM EDT Healthcare maintenance from Last 3 Months or Most Recently Relevant to Health Maintenance Results * Hepatitis C Antibody ([facility]) (06/21/2024) Hepatitis C Ab Nonreactive Blood 06/21/2024 Historical Provider MD LAB BLOOD ORDERABLES Shara l Result * HIV Ab/Ag ([facility]) (06/21/2024) HIV Ag/Ab Nonreactive Blood 06/21/2024 [facility] Provider MD LAB BLOOD ORDERABLES Shara l Result * Lipid Panel, Standard (01/01/2023 3:57 PM EDT) Pathologist [facility] Triglycerides 224 mg/dL [facility] Comment:Desirable Triglyceri de: less than 150 mg/dLBorderline High Triglyceride 150-199 mg/dLHigh Triglyceride: 200-499 mg/dLVery High Triglyceride: greater than or equal to 5OO mg/dL Cholesterol 162 mg/dL [facility] Comment:Desirable Cholestero l: less than 200 mg/dLBorderline High Cholesterol: 200-239 mg/dLHigh Cholesterol: greater than 239 mg/dL LDL Cholesterol Calculated 81 mg/dl [facility] Comment:Desirable LDL: less than 100 mg/dLNear Optimal/Above Optimal LDL: 110- 129 mg/dLBorderline High LDL: 130-159 mg/dLHigh LDL: 160-189 mg/dLVery High LDL: greater than or equal to 190 mg/dL HDL Cholesterol 37 mg/dL [facility] Comment:Desirable HDL: great er than 40 mg/dL Note: This HDL assay may give artificially low results in patients with liver disease. Blood Venous blood specimen / Unknown 01/01/2023 3:57 PM EDT 01/01/2023 5:57 PM EDT Akiko Camacho BREAKER OILER LAB BLOOD ORDERABLES Final Res ult [facility] [address] [place] [address] [phone] from Last 3 Months or Most Recently Relevant to Health Maintenance Insurance [facility] Care Teams Hydro Operator Relationship Specialty Start Date End Date Akiko Camacho FNP [address] [place] [address] PCP - General Family Medicine 11/24/22 Aminah Ribeiro, PhD [address] [place], [place] [phone] Psychology 12/30/22
--- OUTSIDE RECORDS SUMMARY | 2025-04-03 17:03 | XMS_ITS | Encounter Summary ---
Author Organization [employer] Address [address] [facility] [address] [place] [address] Care Team Providers Care Nozzleman Name Role Phone Akiko Camacho KNITTING TEACHER Primary Care Provider [phone] Aminah Ribeiro PhD Unavailable Reason for Visit * Reason Comments Med Change Request Encounter Details Date Type Department Care Team ([facility] Contact Info) Description 01/18/2025 Refill [facility] [address] [place], [place] [phone] Ritika Giron CNM [address] [place], [place] [phone] Social History Tobacco Use Types Packs/Day Years [...] your housing situation today? I have shirlene sing 01/09/[address] you li [...] Description 04/12/2025 3:30 PM EST Office Visit [facility] [address] [place] [address] Ritika Giron CNM [address] [place] [address] 05/16/2025 10:45 AM EST Office Visit [facility] [address] [place], [place] [phone] Mira Ahumada MD [address] [place] [address] documented as of this encounter Visit Diagnoses Not on filedocumented in this encounter Additional Health Concerns Assessment Noted Time PHQ-9 Depression Total Score: 9 01/10/20 25 2:58 PM EDT documented as of this encounter Care Teams Nozzleman Relationship Specialty Start Date End Date Akiko Camacho FNP [address] [place] [address] PCP - General Family Medicine 11/24/22 Aminah Ribeiro, PhD [address] [place] [address] Psychology 12/30/22 documented as of this encounter
--- OUTSIDE RECORDS SUMMARY | 2025-04-03 17:03 | XMS_ITS | Encounter Summary ---
Author Organization [employer] Address [address] [facility] [address] [place] [address] Care Team Providers Care Moth Proofer Name Role Phone Akiko Camacho Primary Care Provider Aminah Riberio PhD Unavailable [phone] Reason for Visit * Reason Onset Date Comments Results 01/30/2023 Encounter Details Date Type Department Care Team ([facility] st Contact Info) Description 01/30/[address] [facility] [address] [place] [address] Akiko Camacho FNP [address] [place], [place] [phone] Results Social History Tobacco Use Types Packs/Day [...] to lab results. Please contact pt at [phone] documented in this encounter Plan of Treatment Upcoming Encounters Date Type Department Care Team (Late st Contact Info) Description 04/12/2025 3:30 PM EST Office Visit [facility] [address] [place] [address] Ritika Giron CNM [address] [place] [address] 05/16/2025 10:45 AM EST Office Visit [facility]EDS [address] [place], [place] [phone] Mira Ahumada MD [address] [place], [place] [phone] documented as of this encounter Visit Diagnoses Not on filedocumented in this encounter Additional Health Concerns Assessment Noted Time PHQ-9 Depression Total Score: 22 11/21/ 023 2:13 PM EDT documented as of this encounter Care Teams Moth Proofer Relationship Specialty Start Date End Date Akiko Camacho FNP [address] [place], [place] [phone] PCP - General Family Medicine 11/24/22 Aminah Ribeiro, PhD [address] [place], [place] [phone] Psychology 12/30/22 documented as of this encounter
--- OUTSIDE RECORDS SUMMARY | 2025-04-03 17:03 | XMS_ITS | Encounter Summary ---
Author Organization [employer] Address [address] [facility] [address] [place] [address] Care Team Providers Care Hydroelectric Production Technician Name Role Phone Akiko Camacho Primary Care Provider [phone] Aminah Ribeiro PhD Unavailable [phone] Reason for Visit * Reason Onset Date Comments Call Back Request 07/19/2024 Referral 07/19/2024 Encounter Details Date Type Department Care Team ([facility] st Contact Info) Description 07/19/2024 Telephone [facility] [address] [place] [address] Akiko Camacho FNP [address] [place], [place] [phone] Call Back Request (/); Referral Social History [...] a call back to discuss breast augmentation. [phone] documented in this encounter Plan of Treatment Upcoming Encounters Date Type Department Care Team (Late st Contact Info) Description 04/12/2025 3:30 PM EST Office Visit [facility] [address] [place] [address] Ritika Giron CNM [address] [place] [address] 05/16/2025 10:45 AM EST Office Visit [facility]S [address], [place] [phone] Mira Ahumada MD [address] [place], [place] [phone] documented as of this encounter Visit Diagnoses Not on filedocumented in this encounter Additional Health Concerns Assessment Noted Time PHQ-9 Depression Total Score: 7 07/03/19 24 3:39 PM EST documented as of this encounter Care Teams Hydroelectric Production Technician Relationship Specialty Start Date End Date Akiko Camacho FNP [address] [place], [place] [phone] PCP - General Family Medicine 11/24/22 Aminah Ribeiro, PhD [address] [place] [address] Psychology 12/30/22 documented as of this encounter
--- OUTSIDE RECORDS SUMMARY | 2025-04-03 17:03 | XMS_ITS | Encounter Summary ---
Author Organization [employer] Address [address] [facility] [address] 7[address] [place] [address] Care Team Providers Care Budget Examiner Name Role Phone Akiko Camacho Primary Care Provider [phone] Aminah Ribeiro PhD Unavailable [phone] Reason for Visit * Reason Onset Date Comments Med Refill 05/26/2023 Encounter Details Date Type Department Care Team ([facility] st Contact Info) Description 05/26/2023 Refill [facility] [address] [place] [address] Akiko Camacho FNP [address] [place], [place] [phone] Social History Tobacco Use Types Packs/Day Years [...] text once ready for pickup. RN will BHAIVK Yost. * Telephone Encounter - Ritika Giron [...] 3 ML misc To be sent to: [facility]/pharmacy #[id number] - [place], [place] - [address] [place] [address] [facility] documented in this encounter Plan of Treatment Upcoming Encounters Date Type Department Care Team (Late st Contact Info) Description 04/12/2025 3:30 PM EST Office Visit [facility] [address] [place] [address] Ritika Giron CNM [address] [place] [address] 05/16/2025 10:45 AM EST Office Visit [facility] [address] [place] [address] Mira Ahumada MD [address] [place], [place] [phone] documented as of this encounter Visit Diagnoses Not on filedocumented in this encounter Additional Health Concerns Assessment Noted Time PHQ-9 Depression Total Score: 4 05/08/20 23 1:13 PM EST documented as of this encounter Care Teams Budget Examiner Relationship Specialty Start Date End Date Akiko Camacho FNP [address] [place] [address] PCP - General Family Medicine 11/24/22 Aminah Ribeiro, PhD [address] [place] [address] Psychology 12/30/22 documented as of this encounter
--- OUTSIDE RECORDS SUMMARY | 2025-04-03 17:03 | XMS_ITS | Encounter Summary ---
Author Organization [employer] Address 75 [facility] 7t [place] [address] Care Team Providers Care Lead Application Architect Name Role Phone NarensolisAkiko FAMILY RESOURCE SPECIALIST Primary Care Provider [phone] Aminah Ribeiro PhD Unavailable [phone] Encounter Details Date Type Department Care Team (Late st Contact Info) Description 02/27/2023 Orders Only [facility] [address] [place], [place] [phone] Ritika Giron CNM [address] [place] [address] Social History Tobacco Use Types Packs/Day Years [...] Description 04/12/2025 3:30 PM EST Office Visit [facility] [address] [place], [place] [phone] Ritika Giron CNM [address] [place] [address] 05/16/2025 10:45 AM EST Office Visit [facility] [address] [place] [address] Mira Ahumada MD [address] [place] [address] documented as of this encounter Visit Diagnoses Not on filedocumented in this encounter Additional Health Concerns Assessment Noted Time PHQ-9 Depression Total Score: 22 023 2:13 PM EDT documented as of this encounter Care Teams Lead Application Architect Relationship Specialty Start Date End Date Akiko Camacho FNP [address] [place] [address] PCP - General Family Medicine 11/24/22 Aminah Ribeiro, PhD [address] [place] [address] Psychology 12/30/22 documented as of this encounter
--- OUTSIDE RECORDS SUMMARY | 2025-04-03 17:03 | XMS_ITS | Encounter Summary ---
Author Organization [employer] Address [address] [facility] 7t [place] [address] Care Team Providers Care Vat Cleaner Name Role Phone Akiko Camacho ASH PIT WORKER Primary Care Provider [phone] Aminah Ribeiro PhD Unavailable [phone] Encounter Details Date Type Department Care Team ([facility] st Contact Info) Description 12/05/2024 Telephone [employer] [facility] [address] [place], [place] [phone] Ritika Giron, SRINIVAS 230 [place] [address] Social History Tobacco Use Types Packs/Day Years [...] Telephone Encounter - Ritika Giron CNM - 12/06/2024 8:[address] Leach take her insurance for breast surgery? * Telephone Encounter - Ritika Giron CNM - 12/06/2024 8:30 AM EDT be Reeves. * Telephone Encounter - Ritika Giron CNM - 12/05/2024 12:48 PM EDT be Reeves. Does Chrissie Pulido take her insurance? [address] [place] [address], [address], [place] [address] Fax * Telephone Encounter - Tesha Pritchett - 12/05/2024 12:38 PM EDT TC to Dr. Núñez office and patient insurance not accept it at their office. documented in this encounter Plan of Treatment Upcoming Encounters Date Type Department Care Team (Late st Contact Info) Description 04/12/2025 3:30 PM EST Office Visit [facility] MEDICINE [address] [place] [address] Ritika Giron CNM 230 [place] [address] 05/16/2025 10:45 AM EST Office Visit [facility] CHC MED & PEDS 505 [place], [place] [phone] Mira Ahumada MD 505 [place], [place] [phone] documented as of this encounter Visit Diagnoses Not on filedocumented in this encounter Additional Health Concerns Assessment Noted Time PHQ-9 Depression Total Score: 7 07/03/19 24 3:39 PM EST documented as of this encounter Care Teams Vat Cleaner Relationship Specialty Start Date End Date Akiko Camacho FNP 230 [place], [place] [phone] PCP - General Family Medicine 11/24/22 Aminah Ribeiro, PhD 230 [place], [place] [phone] Psychology 12/30/22 documented as of this encounter
--- OUTSIDE RECORDS SUMMARY | 2025-04-03 17:03 | XMS_ITS | Encounter Summary ---
Author Organization [email or web address] Address [address] [facility] [address] 7[address] [place] [address] Care Team Providers Care Slack Cooper Name Role Phone Akiko Camacho VACCINATOR Primary Care Provider [phone] Aminah Ribeiro PhD Unavailable [phone] Reason for Visit * Reason Comments Med Change Request Encounter Details Date Type Department Care Team ([facility] Contact Info) Description 11/04/2023 Refill [facility] MEDICINE [address] [place], [place] [phone] Ritika Giron CNM [address] [place], [place] [phone] Social History Tobacco Use Types Packs/Day Years [...] Description 04/12/2025 3:30 PM EST Office Visit [facility] MEDICINE [address] [place] [address] Ritika Giron CNM [address] [place] [address] 05/16/2025 10:45 AM EST Office Visit [facility] CHC MED & PEDS 505 [place], [place] [phone] Mira Ahumada MD 505 [place] [address] documented as of this encounter Visit Diagnoses Not on filedocumented in this encounter Additional Health Concerns Assessment Noted Time PHQ-9 Depression Total Score: 7 07/03/19 24 3:39 PM EST documented as of this encounter Care Teams Slack Cooper Relationship Specialty Start Date End Date Akiko Camacho FNP [address] [place] [address] PCP - General Family Medicine 11/24/22 Aminah Ribeiro, PhD [address] [place] [address] Psychology 12/30/22 documented as of this encounter
--- OUTSIDE RECORDS SUMMARY | 2025-04-03 17:03 | XMS_ITS | Encounter Summary ---
Author Organization [employer] Address [address] [facility] [address] 7[address] [place] [address] Care Team Providers Care Ambulatory Care Name Role Phone Akiko Camacho USER INTERFACE DESIGNER Primary Care Provider Aminah Ribeiro PhD Unavailable [phone] Reason for Visit * Reason Comments Med Refill Encounter Details Date Type Department Care Team ([facility] st Contact Info) Description 07/09/2023 Refill [facility] MED & PEDS 505 [place], [place] [phone] Ritika Giron CNM 230 [place] [address] Social History Tobacco Use Types Packs/Day Years [...] 3:30 PM EST Office Visit [facility] MEDICINE 230 [place] [address] Ritika Giron CNM 230 [place] [address] 05/16/2025 10:45 AM EST Office Visit [facility] CHC MED & PEDS 505 [place], [place] [phone] Mira Ahumada MD 505 [place] [address] documented as of this encounter Visit Diagnoses Not on filedocumented in this encounter Additional Health Concerns Assessment Noted Time PHQ-9 Depression Total Score: 7 07/03/19 24 3:39 PM EST documented as of this encounter Care Teams Ambulatory Care Relationship Specialty Start Date End Date Akiko Camacho FNP [address] [place] [address] PCP - General Family Medicine 11/24/22 Aminah Ribeiro, PhD [address] [place] [address] Psychology 12/30/22 documented as of this encounter
--- OUTSIDE RECORDS SUMMARY | 2025-04-03 17:03 | XMS_ITS | Encounter Summary ---
Author Organization [employer] Address [address] [facility] [address] [facility] [address] 7[address] [place] [address] Care Team Providers Care Corset Maker Name Role Phone Akiko Camacho COLLATOR OPERATOR Primary Care Provider [phone] Aminah Ribeiro PhD Unavailable [phone] Reason for Visit * Reason Onset Date Comments Med Refill 12/28/2023 Encounter Details Date Type Department Care Team (Late st Contact Info) Description 12/28/2023 Refill [facility] MEDICINE 230 [place], [place] [phone] Ritika Giron, SRINIVAS [address] [place], [place] [phone] Social History Tobacco Use Types Packs/Day Years [...] Description 04/12/2025 3:30 PM EST Office Visit [facility] MEDICINE [address] [place] [address] Ritika Giron CNM [address] [place] [address] 05/16/2025 10:45 AM EST Office Visit [facility] CHC MED & PEDS 505 [place] [address] Mira Ahumada MD 505 [place] [address] documented as of this encounter Visit Diagnoses Not on filedocumented in this encounter Additional Health Concerns Assessment Noted Time PHQ-9 Depression Total Score: 7 07/03/19 24 3:39 PM EST documented as of this encounter Care Teams Corset Maker Relationship Specialty Start Date End Date Akiko Camacho FNP 230 [place] [address] PCP - General Family Medicine 11/24/22 Aminah Ribeiro, PhD 230 [place] [address] Psychology 12/30/22 documented as of this encounter
--- OUTSIDE RECORDS SUMMARY | 2025-04-03 17:03 | XMS_ITS | Encounter Summary ---
Author Organization [employer] Address [address] [facility] [address] 7[address] [place] [address] Care Team Providers Care Shift Commander Name Role Phone Akiko Camacho SUPERVISORY HISTORIAN Primary Care Provider [phone] Aminah Ribeiro PhD Unavailable [phone] Reason for Visit * Reason Onset Date Comments Med Refill 10/19/2024 Encounter Details Date Type Department Care Team ([facility] st Contact Info) Description 10/19/2024 Telephone [facility] MEDICINE 230 [place], [place] [phone] Ritika Giron CNM 230 [place], [place] [phone] Med Refill Social History Tobacco Use Types Packs/Day Years [...] encounter Miscellaneous Notes * Telephone Encounter - Tesha Pritchett - 11/01/2024 4:45 PM EDT Good afternoon Ritika, patient with no active insurance. Unable to refer out. documented in this encounter Plan of Treatment Upcoming Encounters Date Type Department Care Team (Late st Contact Info) Description 04/12/2025 3:30 PM EST Office Visit [facility] MEDICINE [address] [place] [address] Ritika Giron CNM [address] [place] [address] 05/16/2025 10:45 AM EST Office Visit [facility] CHC MED & PEDS 505 [place] [address] Mira Ahumada MD 505 [place] [address] documented as of this encounter Visit Diagnoses Not on filedocumented in this encounter Additional Health Concerns Assessment Noted Time PHQ-9 Depression Total Score: 7 07/03/19 24 3:39 PM EST documented as of this encounter Care Teams Shift Commander Relationship Specialty Start Date End Date Akiko Camacho FNP 230 [place] [address] PCP - General Family Medicine 11/24/22 Aminah Ribeiro, PhD 230 [place] [address] Psychology 12/30/22 documented as of this encounter
--- OUTSIDE RECORDS SUMMARY | 2025-04-03 17:03 | XMS_ITS | Encounter Summary ---
Author Organization [employer] Address [address] [facility] [address] 7[address] [place] [address] Care Team Providers Care Kitchen Porter Name Role Phone Akiko Camacho NUTRITION TEACHER Primary Care Provider [phone] Aminah Ribeiro PhD Unavailable [phone] Reason for Visit * Reason Comments Med Refill Encounter Details Date Type Department Care Team ([facility] st Contact Info) Description 01/22/2024 Refill [facility] MEDICINE 230 [place], [place] [phone] Ritika Giron CNM [address] [place], [place] [phone] Social History Tobacco Use Types Packs/Day Years [...] Description 04/12/2025 3:30 PM EST Office Visit [facility] MEDICINE 230 [place] [address] Ritika Giron CNM 230 [place] [address] 05/16/2025 10:45 AM EST Office Visit [facility] CHC MED & PEDS 505 [place] [address] Mira Ahumada MD 505 [place] [address] documented as of this encounter Visit Diagnoses Not on filedocumented in this encounter Additional Health Concerns Assessment Noted Time PHQ-9 Depression Total Score: 7 07/03/19 24 3:39 PM EST documented as of this encounter Care Teams Kitchen Porter Relationship Specialty Start Date End Date Akiko Camacho FNP [address] [place] [address] PCP - General Family Medicine 11/24/22 Aminah Ribeiro, PhD 230 [place] [address] Psychology 12/30/22 documented as of this encounter
--- OUTSIDE RECORDS SUMMARY | 2025-04-03 17:03 | XMS_ITS | Encounter Summary ---
Author Organization [employer] Address [address] [facility] [address] 7[address] [place] [address] Care Team Providers Care Retail Analytics Manager Name Role Phone Akiko Camacho Primary Care Provider [phone] Aminah Ribeiro PhD Unavailable [phone] Encounter Details Date Type Department Care Team (Late Contact Info) Description 11/24/2022 Abstract [facility] MEDICINE [address] [place] [address] Akiko Camacho FNP 505 [place] [address] Social History Tobacco Use Types Packs/Day Years [...] Department Care Team (Late Contact Info) Description 04/12/2025 3:30 PM EST Office Visit [facility] MEDICINE [address] [place] [address] Ritika Giron CNM [address] [place] [address] 05/16/2025 10:45 AM EST Office Visit [facility] CHC MED & PEDS 505 [place] [address] Mira Ahumada MD 505 [place] [address] documented as of this encounter Visit Diagnoses Not on filedocumented in this encounter Additional Health Concerns Assessment Noted Time PHQ-9 Depression Total Score: 22 023 2:13 PM EDT documented as of this encounter Care Teams Retail Analytics Manager Relationship Specialty Start Date End Date Akiko Camacho FNP 230 [place] [address] PCP - General Family Medicine 11/24/22 Aminah Ribeiro, PhD 230 [place] [address] Psychology 12/30/22 documented as of this encounter
--- OUTSIDE RECORDS SUMMARY | 2025-04-03 17:03 | XMS_ITS | Encounter Summary ---
Author Organization [employer] Address [address] [facility] [address] 7[address] [place] [address] Care Team Providers Care Engine Repairer Service Name Role Phone Akiko Camacho LETTUCE TRIMMER Primary Care Provider [phone] Aminah Ribeiro PhD Unavailable [phone] Reason for Visit * Reason Comments Med Change Request Encounter Details Date Type Department Care Team ([facility] Contact Info) Description 02/09/2025 Refill [facility] MEDICINE 230 [place], [place] [phone] Ritika Giron CNM 230 [place], [place] [phone] Social History Tobacco Use Types Packs/Day Years [...] Description 04/12/2025 3:30 PM EST Office Visit [facility] MEDICINE 230 [place] [address] Ritika Giron CNM 230 [place] [address] 05/16/2025 10:45 AM EST Office Visit [facility] CHC MED & PEDS 505 [place], [place] [phone] Mira Ahumada MD 505 [place] [address] documented as of this encounter Visit Diagnoses Not on filedocumented in this encounter Additional Health Concerns Assessment Noted Time PHQ-9 Depression Total Score: 9 01/10/20 25 2:58 PM EDT documented as of this encounter Care Teams Engine Repairer Service Relationship Specialty Start Date End Date Akiko Camacho FNP 230 [place] [address] PCP - General Family Medicine 11/24/22 Aminah Ribeiro, PhD [address] [place] [address] Psychology 12/30/22 documented as of this encounter
[2025-04-03 18:34] LABS: Alanine Aminotransferase 42 U/L (0-40); Albumin Level 5.1 g/dL (3.5-5.0); Alkaline Phosphatase 76 U/L (39-117); Anion Gap 11 (12-20); Aspartate Amino Transferase 23 U/L (5-37); Blood Urea Nitrogen 16 mg/dL (9-16); Calcium 9.5 mg/dL (8.4-10.2); Carbon Dioxide 29 mmol/L (22-29); Chloride 102 mmol/L (96-108); Estimated Glomerular Filt Rate > 60; Potassium 4.1 mmol/L (3.3-5.1); Sodium 138 mmol/L (135-145); Total Protein 8.1 g/dL (6.5-8.0)
[2025-04-08 16:59] LABS: Estradiol Ultra Sensitive 34 pg/mL (< OR = 29)
[2025-04-09 16:29] LABS: Testosterone, Free 56.6 pg/mL (35.0-155.0)
== END 2025-04-03 15:58 | disposition home or self-care (01) ==
LOC: HO.HHCL 15:57
PROVIDERS: PCP Registered Nurse; Referring Provider Advanced Practice Midwife; Visit Provider Registered Nurse
DX: F64.9 Gender identity disorder, unspecified (principal)
CPT/HCPCS: 36415; 80053; 82670; 84402; 84403